=== PATIENT | female | born 1960 | race Caucasian/White ===

== ENCOUNTER 2018-08-22 10:02 | Day surgery (SDC) | payer OTHER ==
[2018-08-20 12:09] VITALS: BMI 85.8
--- NOTE | 2018-08-22 08:11 | P.GSHP ---
History of Present Illness H&P Date: 08/22/18 CHIEF COMPLAINT: GERD HISTORY OF PRESENT ILLNESS: The patient is a 58-year-old female who presents reports gastroesophageal reflux disease. Upper endoscopy was offered for further evaluation and management. PAST MEDICAL HISTORY: Please see list. PAST SURGICAL HISTORY: Please see list. MEDICATIONS: Please see list. ALLERGIES: Please see list. SOCIAL HISTORY: No illicit drug use FAMILY HISTORY: No reports of Crohn disease or ulcerative colitis. REVIEW OF ORGAN SYSTEMS: CONSTITUTIONAL: No reports of fevers or chills. GI: Denies any blood in stools or constipation. PHYSICAL EXAM: VITAL SIGNS: Stable GENERAL: Well-developed and pleasant in no acute distress. HEENT: No scleral icterus. Extraocular movements grossly intact. Moist buccal mucosa. NECK: Supple without lymphadenopathy. CHEST: Unlabored respirations. Equal bilateral excursions. CARDIOVASCULAR: Regular rate and rhythm. Distal 2+ pulses. ABDOMEN: Soft, nondistended. MUSCULOSKELETAL: No clubbing, cyanosis, or edema. ASSESSMENT: 1. Gastroesophageal reflux disease PLAN: 1. Recommend proceeding with an upper endoscopy Past Medical History Past Medical History: Asthma, Diabetes Mellitus, Deep Vein Thrombosis (DVT), GERD/Reflux, Hyperlipidemia, Hypertension, Pulmonary Embolus (PE), Sleep Apnea/ CPAP/BIPAP Additional Past Medical History / Comment(s): dvt bilat legs, DIABETIC NEUROPATHY,GOUT. cpap History of Any Multi-Drug Resistant Organisms: None Reported Past Surgical History: Cholecystectomy, Hysterectomy, Tonsillectomy, Uterine Ablation Additional Past Surgical History / Comment(s): d & c, laparoscopies, Past Anesthesia/Blood Transfusion Reactions: No Reported Reaction, Family History of Problems w/ Anesthesia Additional Past Anesthesia/Blood Transfusion Reaction / Comment(s): mother had hard time waking up from anesthesia Past Psychological History: Anxiety Smoking Status: Never smoker Past Alcohol Use History: None Reported Past Drug Use History: None Reported - Past Family History Father Family Medical History: Cancer, Deep Vein Thrombosis (DVT), Pulmonary Embolus Additional Family Medical History / Comment(s): Factor K-bleeding disorder. cheryl filter Medications and Allergies Home Medications Medication Instructions Recorded Confirmed Type Albuterol Inhaler [Ventolin Hfa 1 - 2 puff INHALATION RT-Q6H PRN 01/10/18 History Inhaler] Allopurinol [Zyloprim] 300 mg PO DAILY 01/10/18 08/20/18 History Aspirin EC [Ecotrin Low Dose] 81 mg PO DAILY 01/10/18 08/20/18 History Beclomethasone Dipropionate [Qvar 2 puff INHALATION DAILY PRN 01/10/18 08/20/18 History 80 mcg] Cetirizine HCl [Zyrtec] 10 mg PO HS 01/10/18 08/20/18 History Cholecalciferol [Vitamin D3] 1,000 unit PO DAILY 01/10/18 08/20/18 History EPINEPHrine (Auto Inject) [Epipen] 0.3 mg IM ONCE PRN 01/10/18 08/20/18 History Fluticasone Nasal [place] [Flonase 2 spr EA NOSTRIL DAILY PRN 01/10/18 08/20/18 History Nasal [place]] Furosemide [Lasix] 40 mg PO DAILY 01/10/18 08/20/18 History Ibuprofen [Motrin] 800 mg PO BID PRN 01/10/18 08/20/18 History Isosorbide Mononitrate [Isosorbide 30 mg PO DAILY 01/10/18 08/20/18 History Mononitrate ER] Lisinopril [Zestril] 2.5 mg PO HS 01/10/18 08/20/18 History Metoprolol Succinate (ER) [Toprol 100 mg PO DAILY 01/10/18 08/20/18 History Xl] Multivitamin,Therapeutic [Thera] 1 each PO DAILY 01/10/18 08/20/18 History Omeprazole 20 mg PO HS 01/10/18 08/20/18 History Potassium Chloride [Klor-Con 20] 20 meq PO DAILY 01/10/18 08/20/18 History Pravastatin Sodium [Pravachol] 40 mg PO HS 01/10/18 08/20/18 History Rivaroxaban [Xarelto] 20 mg PO DAILY 01/10/18 08/20/18 History busPIRone HCL 15 mg PO DAILY 01/10/18 08/20/18 History busPIRone HCL 30 mg PO HS 01/10/18 08/20/18 History Insulin Glargine [Lantus] 100 unit SQ HS 08/20/18 08/20/18 History Insulin Lispro [Admelog] 20 unit SQ TID PRN 08/20/18 08/20/18 History Melatonin 10 mg PO HS 08/20/18 08/20/18 History Allergies Allergy/AdvReac Type Severity Reaction Status Date / Time bee venom protein (honey bee) Allergy Anaphylaxis Verified 08/20/18 11:41 heparin Allergy "makes Verified 08/20/18 11:41 body stop producing blood" warfarin [From Coumadin] Allergy "makes Verified 08/20/18 11:41 body stop producing blood"
[~2018-08-22 10:02] MED LIST: LACTATED RINGERS 1,000 ML IV SCH
[2018-08-22 10:54] LABS: Glucose,Whole Blood 71 mg/dL (75-99)
[2018-08-22] MEDS ORDERED: DEXTROSE 50%-WATER 50 ML SYRINGE IVP ONE (11:05)
[2018-08-22] MEDS ORDERED: DEXTROSE 5%-LACTATED RINGERS 1,000 ML IV STA (11:11)
[2018-08-22 11:35] LABS: Glucose,Whole Blood 81 mg/dL (75-99)
[2018-08-22] MEDS ORDERED: LIDOCAINE 1% INJ 10MG/ML (20 ML MDV) ONE (11:38)
[2018-08-22] MEDS ORDERED: SUCCINYLCHOLINE CHLORIDE VIAL 200 MG/10 ML VIAL IV ONE (11:38)
[2018-08-22] MEDS ORDERED: PROPOFOL 10 MG/ML 20 ML VIAL IV ONE (11:38)
[2018-08-22] MEDS ORDERED: MIDAZOLAM 2 MG/2 ML VIAL ONE (11:38)
--- NOTE | 2018-08-22 12:11 | P.PCN ---
Date of Procedure: 08/22/18 Description of Procedure: PREOPERATIVE DIAGNOSIS: Gastroesophageal reflux disease. Morbid obesity due to excess calories, BMI 85.9 POSTOPERATIVE DIAGNOSIS: Gastroesophageal reflux disease. Morbid obesity due to excess calories, BMI 85.9 Gastritis, acute diffuse with bleeding Gastric polyps OPERATION: Esophagogastroduodenoscopy with biopsies along antrum. SURGEON: Emilie Hermosillo MD ANESTHESIA: GETA. INDICATIONS: The patient is a 58-year-old female who presents with a history of reflux disease. Benefits and risks of the procedure were described. Informed consent was obtained. DESCRIPTION: The patient was brought into t operating room. After general induction, an Olympus gastroscope was passed along the posterior oropharynx down to the distal esophagus where the squamocolumnar junction was encountered at 42 cm from the incisors. The stomach was entered and bile reflux was found. Additional findings are listed below. Biopsies with cold forceps were obtained of the antrum. The first through third portion of the duodenum was examined and unremarkable. Retroflexion of the scope confirmed Hill grade 1 lower esophageal valve. The squamocolumnar junction demonstrated no LA grade A erosive esophagitis. The stomach was desufflated. The patient tolerated the procedure well. FINDINGS: Squamocolumnar junction 42 cm from the incisors. Diaphragmatic hiatus at 42 cm. Hill grade 1 lower esophageal valve. No LA grade A erosive esophagitis. No active duodenitis. Chronic gastritis with recent bleed Patient deemed Mallampati 2 RECOMMENDATIONS: Upper endoscopy as needed. Omeprazole 40 mg daily for acute bleeding gastritis Plan - Discharge Summary Discharge Rx Participant: Yes New Discharge Prescriptions: New Omeprazole 40 mg PO DAILY #30 capsule.dr No Action Albuterol Inhaler [Ventolin Hfa Inhaler] 1 - 2 puff INHALATION RT-Q6H PRN PRN Reason: Shortness Of Breath Allopurinol [Zyloprim] 300 mg PO DAILY Aspirin EC [Ecotrin Low Dose] 81 mg PO DAILY Beclomethasone Dipropionate [Qvar 80 mcg] 2 puff INHALATION DAILY PRN PRN Reason: Dyspnea busPIRone HCL 15 mg PO DAILY busPIRone HCL 30 mg PO HS Cetirizine HCl [Zyrtec] 10 mg PO HS Cholecalciferol [Vitamin D3] 1,000 unit PO DAILY EPINEPHrine (Auto Inject) [Epipen] 0.3 mg IM ONCE PRN PRN Reason: Anaphylaxis Fluticasone Nasal [place] [Flonase Nasal [place]] 2 spr EA NOSTRIL DAILY PRN PRN Reason: Sinus Symptoms Furosemide [Lasix] 40 mg PO DAILY Ibuprofen [Motrin] 800 mg PO BID PRN PRN Reason: Pain Isosorbide Mononitrate [Isosorbide Mononitrate ER] 30 mg PO DAILY Lisinopril [Zestril] 2.5 mg PO HS Metoprolol Succinate (ER) [Toprol Xl] 100 mg PO DAILY Multivitamin,Therapeutic [Thera] 1 each PO DAILY Omeprazole 20 mg PO HS Potassium Chloride [Klor-Con 20] 20 meq PO DAILY Pravastatin Sodium [Pravachol] 40 mg PO HS Rivaroxaban [Xarelto] 20 mg PO DAILY Melatonin 10 mg PO HS Insulin Glargine [Lantus] 100 unit SQ HS Insulin Lispro [Admelog] 20 unit SQ TID PRN PRN Reason: blood sugar over 150 Discharge Medication List Albuterol Inhaler [Ventolin Hfa Inhaler] 1 - 2 puff INHALATION RT-Q6H PRN [History] Allopurinol [Zyloprim] 300 mg PO DAILY 01/10/18 [History] Aspirin EC [Ecotrin Low Dose] 81 mg PO DAILY 01/10/18 [History] Beclomethasone Dipropionate [Qvar 80 mcg] 2 puff INHALATION DAILY PRN 01/10/18 [ History] Cetirizine HCl [Zyrtec] 10 mg PO HS 01/10/18 [History] Cholecalciferol [Vitamin D3] 1,000 unit PO DAILY 01/10/18 [History] EPINEPHrine (Auto Inject) [Epipen] 0.3 mg IM ONCE PRN 01/10/18 [History] Fluticasone Nasal [place] [Flonase Nasal [place]] 2 spr EA NOSTRIL DAILY PRN [History] Furosemide [Lasix] 40 mg PO DAILY 01/10/18 [History] Ibuprofen [Motrin] 800 mg PO BID PRN 01/10/18 [History] Isosorbide Mononitrate [Isosorbide Mononitrate ER] 30 mg PO DAILY 01/10/18 [ History] Lisinopril [Zestril] 2.5 mg PO HS 01/10/18 [History] Metoprolol Succinate (ER) [Toprol Xl] 100 mg PO DAILY 01/10/18 [History] Multivitamin,Therapeutic [Thera] 1 each PO DAILY 01/10/18 [History] Omeprazole 20 mg PO HS 01/10/18 [History] Potassium Chloride [Klor-Con 20] 20 meq PO DAILY 01/10/18 [History] Pravastatin Sodium [Pravachol] 40 mg PO HS 01/10/18 [History] Rivaroxaban [Xarelto] 20 mg PO DAILY 01/10/18 [History] busPIRone HCL 15 mg PO DAILY 01/10/18 [History] busPIRone HCL 30 mg PO HS 01/10/18 [History] Insulin Glargine [Lantus] 100 unit SQ HS 08/20/18 [History] Insulin Lispro [Admelog] 20 unit SQ TID PRN 08/20/18 [History] Melatonin 10 mg PO HS 08/20/18 [History] Omeprazole 40 mg PO DAILY #30 capsule. 08/22/18 [Rx] Follow up Appointment(s)/Referral(s): Emilie Hermosillo MD [STAFF PHYSICIAN] - 08/28/18 Patient Instructions/Handouts: Gastritis (DC) Discharge Disposition: HOME SELF-CARE
[2018-08-22] MEDS ORDERED: LACTATED RINGERS 1,000 ML IV ONE (12:14)
[2018-08-22 12:24] VITALS: TEMP 97.2
[2018-08-22 12:36] LABS: Glucose,Whole Blood 92 mg/dL (75-99)
[2018-08-22 13:12] VITALS: RESP 16
[2018-08-22 13:19] VITALS: BP 114/68; PULSE 71
== END 2018-08-22 14:23 | disposition home or self-care (01) ==
LOC: ORWHC2ENDO 10:02
PROVIDERS: ATTEND Surgery Plastic and Reconstructive Surgery
DX: K29.01 Acute gastritis with bleeding (principal); K29.51 Unspecified chronic gastritis with bleeding; K21.9 Gastro-esophageal reflux disease without esophagitis; J45.909 Unspecified asthma, uncomplicated; K31.7 Polyp of stomach and duodenum; E78.5 Hyperlipidemia, unspecified; I10 Essential (primary) hypertension; E11.42 Type 2 diabetes mellitus with diabetic polyneuropathy; G47.33 Obstructive sleep apnea (adult) (pediatric); M10.9 Gout, unspecified; E66.01 Morbid (severe) obesity due to excess calories; F41.9 Anxiety disorder, unspecified; Z90.49 Acquired absence of other specified parts of digestive tract; Z86.711 Personal history of pulmonary embolism; Z86.718 Personal history of other venous thrombosis and embolism; Z90.710 Acquired absence of both cervix and uterus; Z79.899 Other long term (current) drug therapy; Z99.89 Dependence on other enabling machines and devices; Z79.82 Long term (current) use of aspirin; Z79.4 Long term (current) use of insulin; Z88.8 Allergy status to other drugs, medicaments and biological substances; Z91.030 Bee allergy status; Z68.45 Body mass index [BMI] 70 or greater, adult; Z79.01 Long term (current) use of anticoagulants
CPT/HCPCS: 88305; 43239; J2250; J0330; J2001; J2704

== ENCOUNTER → 2020-03-04 | Day surgery (SDC) | payer OTHER ==
[2020-02-28 14:56] VITALS: BMI 71.8
[~2020-03-04] MED LIST changes: +GLYCOPYRROLATE 0.2 MG/ML 2 ML VIAL ONE; +KETAMINE 10 MG/ML 20 ML VIAL ONE; +LIDOCAINE 1% INJ 10MG/ML (20 ML MDV) ONE; +MIDAZOLAM 2 MG/2 ML VIAL ONE; +PROPOFOL 10 MG/ML 20 ML VIAL IV ONE
--- NOTE | 2020-03-04 04:30 | P.GSHP ---
History of Present Illness H&P Date: 03/04/20 CHIEF COMPLAINT: GERD HISTORY OF PRESENT ILLNESS: The patient is a 59-year-old female who presents reports gastroesophageal reflux disease. Upper endoscopy was offered for further evaluation and management. PAST MEDICAL HISTORY: Please see list. PAST SURGICAL HISTORY: Please see list. MEDICATIONS: Please see list. ALLERGIES: Please see list. SOCIAL HISTORY: No illicit drug use FAMILY HISTORY: No reports of Crohn disease or ulcerative colitis. REVIEW OF ORGAN SYSTEMS: CONSTITUTIONAL: No reports of fevers or chills. GI: Denies any blood in stools or constipation. PHYSICAL EXAM: VITAL SIGNS: Stable GENERAL: Well-developed and pleasant in no acute distress. HEENT: No scleral icterus. Extraocular movements grossly intact. Moist buccal mucosa. NECK: Supple without lymphadenopathy. CHEST: Unlabored respirations. Equal bilateral excursions. CARDIOVASCULAR: Regular rate and rhythm. Distal 2+ pulses. ABDOMEN: Soft, nondistended. MUSCULOSKELETAL: No clubbing, cyanosis. ASSESSMENT: 1. Gastroesophageal reflux disease PLAN: 1. Recommend proceeding with an upper endoscopy Past Medical History Past Medical History: Asthma, Diabetes Mellitus, Deep Vein Thrombosis (DVT), GERD/Reflux, Hyperlipidemia, Hypertension, Pulmonary Embolus (PE), Sleep Apnea/CPAP/BIPAP Additional Past Medical History / Comment(s): dvt bilat legs, DIABETIC NEUROPATHY,GOUT,uses cpap,lymphadema History of Any Multi-Drug Resistant Organisms: None Reported Past Surgical History: Cholecystectomy, Hysterectomy, Tonsillectomy, Uterine Ablation Additional Past Surgical History / Comment(s): d & c, laparoscopies, Past Anesthesia/Blood Transfusion Reactions: No Reported Reaction, Family History of Problems w/ Anesthesia Additional Past Anesthesia/Blood Transfusion Reaction / Comment(s): mother had hard time waking up from anesthesia Past Psychological History: Anxiety Smoking Status: Never smoker Past Alcohol Use History: None Reported Past Drug Use History: None Reported - Past Family History Father Family Medical History: Cancer, Deep Vein Thrombosis (DVT), Pulmonary Embolus Additional Family Medical History / Comment(s): Factor K-bleeding disorder. cheryl filter Medications and Allergies Home Medications Medication Instructions Recorded Confirmed Type Albuterol Inhaler (Mhu) [Ventolin 1 - 2 puff INHALATION RT-Q6H PRN 01/10/18 02/28/20 History Hfa Inhaler] Aspirin EC [Ecotrin Low Dose] 81 mg PO DAILY 01/10/18 02/28/20 History Beclomethasone Dipropionate [Qvar 2 puff INHALATION DAILY PRN 01/10/18 02/28/20 History 80 mcg] Cetirizine HCl [Zyrtec] 10 mg PO HS 01/10/18 02/28/20 History Cholecalciferol [Vitamin D3] 1,000 unit PO DAILY 01/10/18 02/28/20 History EPINEPHrine (Auto Inject) [Epipen] 0.3 mg IM ONCE PRN 01/10/18 02/28/20 History Fluticasone Nasal [place] [Flonase 2 spr EA NOSTRIL DAILY PRN 01/10/18 02/28/20 History Nasal [place]] Furosemide [Lasix] 40 mg PO DAILY 01/10/18 02/28/20 History Isosorbide Mononitrate [Isosorbide 30 mg PO QA 01/10/18 02/28/20 History Mononitrate ER] Metoprolol Succinate (ER) [Toprol 100 mg PO QA 01/10/18 02/28/20 History Xl] Multivitamin,Therapeutic [Thera] 1 each PO DAILY 01/10/18 02/28/20 History Omeprazole 20 mg PO HS 01/10/18 02/28/20 History Potassium Chloride [Klor-Con 20] 20 meq PO DAILY 01/10/18 02/28/20 History Pravastatin Sodium [Pravachol] 40 mg PO HS 01/10/18 02/28/20 History Rivaroxaban [Xarelto] 20 mg PO DAILY 01/10/18 02/28/20 History allopurinoL [Zyloprim] 300 mg PO DAILY 01/10/18 02/28/20 History busPIRone HCL 15 mg PO DAILY 01/10/18 02/28/20 History busPIRone HCL 30 mg PO HS 01/10/18 02/28/20 History lisinopriL [Zestril] 2.5 mg PO HS 01/10/18 02/28/20 History Insulin Lispro [Admelog] 20 unit SQ TID PRN 08/20/18 02/28/20 History Melatonin 10 mg PO HS 08/20/18 02/28/20 History Omeprazole 40 mg PO DAILY #30 capsule. 08/22/18 02/28/20 Rx Insulin Glargine,Hum.rec.anlog 60 unit SQ HS 03/03/20 03/03/20 History [Basaglsoumya Evans U-100] Allergies Allergy/AdvReac Type Severity Reaction Status Date / Time bee venom protein (honey bee) Allergy Anaphylaxis Verified 02/28/20 14:47 heparin Allergy "makes Verified 02/28/20 14:47 body stop producing blood" hydrocodone Allergy "norco Verified 02/28/20 14:47 doesn't work" warfarin [From Coumadin] Allergy "makes Verified 02/28/20 14:47 body stop producing blood"
[2020-03-04 07:13] VITALS: TEMP 97.9
[2020-03-04 07:15] LABS: Glucose,Whole Blood 268 mg/dL (75-99)
[2020-03-04 08:18] VITALS: RESP 16
--- NOTE | 2020-03-04 08:18 | P.PCN ---
Date of Procedure: 03/04/20 Description of Procedure: PREOPERATIVE DIAGNOSIS: Gastroesophageal reflux disease History of gastritis and gastric ulcer Morbid obesity due to excess calories, BMI > 80 POSTOPERATIVE DIAGNOSIS: Gastroesophageal reflux disease History of gastritis and gastric ulcer Morbid obesity due to excess calories, BMI > 80 OPERATION: Esophagogastroduodenoscopy with biopsies along antrum. SURGEON: Emilie Hermosillo MD ANESTHESIA: MAC. INDICATIONS: The patient is a 59-year-old female who presents with a history of reflux disease including gastritis. Benefits and risks of the procedure were described. Informed consent was obtained. DESCRIPTION: The patient was brought into the endoscopy suite and laid in the left lateral decubitus position. An Olympus gastroscope was passed along the posterior oropharynx down to the distal esophagus where the squamocolumnar junction was encountered at 40 cm from the incisors. The stomach was entered and no bile reflux was found. Additional findings are listed below. Biopsies with cold forceps were obtained of the antrum. The first through third portion of the duod enum was examined and unremarkable. Retroflexion of the scope confirmed Hill grade 2 lower esophageal valve. The squamocolumnar junction demonstrated no LA grade A erosive esophagitis. The stomach was desufflated. The patient tolerated the procedure well. FINDINGS: Squamocolumnar junction 40 cm from the incisors. Diaphragmatic hiatus at 40 cm. Hill grade 2 lower esophageal valve. No LA grade A erosive esophagitis. No active duodenitis. Resolved severe gastritis and gastric ulcers RECOMMENDATIONS: Upper endoscopy as needed. Plan - Discharge Summary Discharge Rx Participant: No New Discharge Prescriptions: Continue Albuterol Inhaler (Mhu) [Ventolin Hfa Inhaler (Mhu)] 1 - 2 puff INHALATION RT-Q6H PRN PRN Reason: Shortness Of Breath allopurinoL [Zyloprim] 300 mg PO DAILY Aspirin EC [Ecotrin Low Dose] 81 mg PO DAILY Beclomethasone Dipropionate [Qvar 80 mcg] 2 puff INHALATION DAILY PRN PRN Reason: Dyspnea busPIRone HCL 15 mg PO DAILY busPIRone HCL 30 mg PO HS Cetirizine HCl [Zyrtec] 10 mg PO HS Cholecalciferol [Vitamin D3 (25 Mcg = 1000 Iu)] 1,000 unit PO DAILY EPINEPHrine (Auto Inject) [Epipen] 0.3 mg IM ONCE PRN PRN Reason: Anaphylaxis Fluticasone Nasal [place] [Flonase Nasal [place]] 2 spr EA NOSTRIL DAILY PRN PRN Reason: Sinus Symptoms Furosemide [Lasix] 40 mg PO DAILY Isosorbide Mononitrate [Isosorbide Mononitrate ER] 30 mg PO QAM lisinopriL [Zestril] 2.5 mg PO HS Metoprolol Succinate (ER) [Toprol XL] 100 mg PO QAM Multivitamin,Therapeutic [Thera] 1 each PO DAILY Potassium Chloride [Klor-Con 20] 20 meq PO DAILY Pravastatin Sodium [Pravachol] 40 mg PO HS Rivaroxaban [Xarelto] 20 mg PO DAILY Melatonin 10 mg PO HS Insulin Lispro [Admelog] 20 unit SQ TID PRN PRN Reason: blood sugar over 150 Omeprazole 40 mg PO DAILY #30 capsule. Insulin Glargingiovanni,Hum.rec.anlog [Basaglar Kwikpen U-100] 60 unit SQ HS Discontinued Omeprazole 20 mg PO HS Discharge Medication List Albuterol Inhaler (Mhu) [Ventolin Hfa Inhaler (Mhu)] 1 - 2 puff INHALATION RT- Q6H PRN 01/10/18 [History] Aspirin EC [Ecotrin Low Dose] 81 mg PO DAILY 01/10/18 [History] Beclomethasone Dipropionate [Qvar 80 mcg] 2 puff INHALATION DAILY PRN 01/10/18 [History] Cetirizine HCl [Zyrtec] 10 mg PO HS 01/10/18 [History] Cholecalciferol [Vitamin D3 (25 Mcg = 1000 Iu)] 1,000 unit PO DAILY 01/10/18 [History] EPINEPHrine (Auto Inject) [Epipen] 0.3 mg IM ONCE PRN 01/10/18 [History] Fluticasone Nasal [place] [Flonase Nasal [place]] 2 spr EA NOSTRIL DAILY PRN 01/10/18 [History] Furosemide [Lasix] 40 mg PO DAILY 01/10/18 [History] Isosorbide Mononitrate [Isosorbide Mononitrate ER] 30 mg PO QAM 01/10/18 [History] Metoprolol Succinate (ER) [Toprol XL] 100 mg PO QAM 01/10/18 [History] Multivitamin,Therapeutic [Thera] 1 each PO DAILY 01/10/18 [History] Potassium Chloride [Klor-Con 20] 20 meq PO DAILY 01/10/18 [History] Pravastatin Sodium [Pravachol] 40 mg PO HS 01/10/18 [History] Rivaroxaban [Xarelto] 20 mg PO DAILY 01/10/18 [History] allopurinoL [Zyloprim] 300 mg PO DAILY 01/10/18 [History] busPIRone HCL 15 mg PO DAILY 01/10/18 [History] busPIRone HCL 30 mg PO HS 01/10/18 [History] lisinopriL [Zestril] 2.5 mg PO HS 01/10/18 [History] Insulin Lispro [Admelog] 20 unit SQ TID PRN 08/20/18 [History] Melatonin 10 mg PO HS 08/20/18 [History] Omeprazole 40 mg PO DAILY #30 capsule. 08/22/18 [Rx] Insulin Glargine,Hum.rec.anlog [[place] U-100] 60 unit SQ HS 03/03/20 [History] Follow [facility]ment(s[facility] [facility] [place] [facility] - [facility] Patient Instructions/Handouts: Gastroesophageal Reflux Disease (DC) Discharge Disposition: HOME SELF-CARE
[2020-03-04 08:20] LABS: Glucose,Whole Blood 261 mg/dL (75-99)
--- NOTE | 2020-03-04 08:44 | P.PN ---
Progress Note - Text Progress Note Date: 03/04/20 Patient presents for super morbid obesity, pre-existing BMI over 80. Patient requires EMS transport for transportation. EGD completed with resolution of gastritis. Patient is a bariatric candidate from [facility] transferring care to [facility]. She has ischemic cardiomyopathy, COPD. We'll obtain EKG including chest x-ray. Also, bariatric labs being obtained for nutritional deficiencies. Consent for transfer records being obtained by bariatric center
[2020-03-04 09:02] VITALS: BP 149/74; PULSE 69
--- NOTE | 2020-03-04 09:10 | XR ---
EXAMINATION TYPE: XR chest 1V DATE OF EXAM: 03/04/2020 HISTORY: Shortness of breath. COMPARISON: None. TECHNIQUE: Single view of the chest is submitted. FINDINGS: Demonstrated are scattered senescent parenchymal change. There is no evidence for focal infiltrate. The heart is stable. Hilar and mediastinal structures are within normal limits. Degenerative changes are seen of the dorsal spine. IMPRESSION: 1. Chronic changes without evidence for acute pulmonary disease.
[2020-03-04 10:05] LABS: Basophils # (A) 0.1 k/uL (0-0.2); Basophils % (A) 1 %; Eosinophils # (A) 0.3 k/uL (0-0.7); Eosinophils % (A) 4 %; HCT 41.7 % (34.0-46.0); HGB 13.3 gm/dL (11.4-16.0); Lymphocytes % (A) 28 %; MCH 30.7 pg (25.0-35.0); Mean Platelet Volume 7.7; Monocytes # (A) 0.4 k/uL (0-1.0); Monocytes % (A) 6 %; Neutrophils # (A) 4.2 k/uL (1.3-7.7); Neutrophils % (A) 59 %; Platelet Count 181 k/uL (150-450); RBC 4.34 m/uL (3.80-5.40); RDW 14.4 % (11.5-15.5); WBC 7.2 k/uL (3.8-10.6)
[2020-03-04 10:10] LABS: ALT 19 U/L (4-34); AST 20 U/L (14-36); African American GFR (CKD) >90 (>60 ml/min/1.73 sqM); Albumin 3.4 g/dL (3.5-5.0); Alkaline Phosphatase 93 U/L (38-126); Anion Gap 4 mmol/L; Blood Urea Nitrogen 17 mg/dL (7-17); Calcium 8.8 mg/dL (8.4-10.2); Carbon Dioxide 30 mmol/L (22-30); Chloride 103 mmol/L (98-107); Cholesterol 160 mg/dL (<200); Glucose 230 mg/dL (74-99); HDL Cholesterol 45 mg/dL (40-60); LDL Cholesterol,Calculated 91 mg/dL (0-99); Magnesium 2.1 mg/dL (1.6-2.3); Non-African American GFR(CKD) 81 (>60 ml/min/1.73 sqM); Potassium 4.4 mmol/L (3.5-5.1); Sodium 137 mmol/L (137-145); Total Bilirubin 0.5 mg/dL (0.2-1.3); Triglycerides 121 mg/dL (<150)
[2020-03-04 17:16] LABS: % Iron Saturation 17.57 (12.00-45.00); Iron 55 ug/dL (50-170); Total Iron Binding Capacity 313 ug/dL (228-460)
[2020-03-04 17:24] LABS: Ferritin 20.3 ng/mL (10.0-291.0)
[2020-03-04 17:31] LABS: Folate, Serum 21.8 ng/mL
[2020-03-05 11:40] LABS: Zinc, Serum 69 ug/dL (60-130)
[2020-03-05 12:17] LABS: Vitamin D, 1, 25-Dihydroxy 44 pg/mL (20 - 79)
[2020-03-05 13:17] LABS: Vitamin A 33 ug/dL (38-106)
[2020-03-06 23:58] LABS: Selenium 100 mcg/L (63-160)
== END | disposition home or self-care (01) ==
LOC: ORWHC2ENDO 06:41
PROVIDERS: ATTEND Surgery Plastic and Reconstructive Surgery
DX: K25.9 Gastric ulcer, unspecified as acute or chronic, without hemorrhage or perforation (principal); K29.50 Unspecified chronic gastritis without bleeding; K21.9 Gastro-esophageal reflux disease without esophagitis; E66.01 Morbid (severe) obesity due to excess calories; Z68.45 Body mass index [BMI] 70 or greater, adult; E11.40 Type 2 diabetes mellitus with diabetic neuropathy, unspecified; I25.5 Ischemic cardiomyopathy; J45.909 Unspecified asthma, uncomplicated; Z86.718 Personal history of other venous thrombosis and embolism; E78.5 Hyperlipidemia, unspecified; I10 Essential (primary) hypertension; Z86.711 Personal history of pulmonary embolism; G47.33 Obstructive sleep apnea (adult) (pediatric); Z99.89 Dependence on other enabling machines and devices; M10.9 Gout, unspecified; F41.9 Anxiety disorder, unspecified; I89.0 Lymphedema, not elsewhere classified; Z90.49 Acquired absence of other specified parts of digestive tract; Z90.710 Acquired absence of both cervix and uterus; Z98.890 Other specified postprocedural states; Z84.89 Family history of other specified conditions; Z82.49 Family history of ischemic heart disease and other diseases of the circulatory system; Z83.2 Family history of diseases of the blood and blood-forming organs and certain disorders involving the immune mechanism; Z95.828 Presence of other vascular implants and grafts; Z79.01 Long term (current) use of anticoagulants; Z79.82 Long term (current) use of aspirin; Z79.4 Long term (current) use of insulin; Z79.899 Other long term (current) drug therapy; Z88.5 Allergy status to narcotic agent; Z88.8 Allergy status to other drugs, medicaments and biological substances; Z91.030 Bee allergy status
CPT/HCPCS: 84255; 82652; 88305; 80061; 80053; 82607; 82728; 82525; 82746; 83540; 83550; 83735; 84443; 84590; 84630; 85025; 85610; 83970; 71045; 43239; J2250; J2001; J2704

== ENCOUNTER 2020-03-21 12:10 | Inpatient (IN) | payer OTHER ==
--- NOTE | 2020-03-21 12:55 | ED ---
General Adult HPI - General Chief complaint: Skin/Abscess/Foreign Body Stated complaint: Celulitis Time Seen by Provider: 03/21/20 12:14 Source: patient, RN notes reviewed Mode of arrival: wheelchair Limitations: no limitations - History of Present Illness Initial comments: Patient is a pleasant 60-year-old female presenting to the emergency department with concerns for cellulitis. Patient was at the clinic with Dr. Del Angel who did evaluate her and recommend she come to the emergency department. Patient has been on oral antibiotics without improvement of symptoms. Patient does have history of similar symptoms previously requiring hospitalization and infectious disease consult with a cocktail of antibiotics. Patient does have some discomfort in the area. Area involved is left greater than right posterior leg. Patient did also have a fall out of the ambulance upon arrival to the hospital. Patient states she just bruised her left elbow and scratch her right elbow. No head injury or loss of consciousness. - Related Data Home Medications Medication Instructions Recorded Confirmed Albuterol Inhaler (Mhu) [Ventolin 1 - 2 puff INHALATION RT-Q6H PRN 01/10/18 02/28/20 Hfa Inhaler (Mhu)] Aspirin EC [Ecotrin Low Dose] 81 mg PO DAILY 01/10/18 02/28/20 Beclomethasone Dipropionate [Qvar 2 puff INHALATION DAILY PRN 01/10/18 02/28/20 80 mcg] Cetirizine HCl [Zyrtec] 10 mg PO HS 01/10/18 02/28/20 Cholecalciferol [Vitamin D3 (25 1,000 unit PO DAILY 01/10/18 02/28/20 Mcg = 1000 Iu)] EPINEPHrine (Auto Inject) [Epipen] 0.3 mg IM ONCE PRN 01/10/18 02/28/20 Fluticasone Nasal [place] [Flonase 2 spr EA NOSTRIL DAILY PRN 01/10/18 02/28/20 Nasal [place]] Furosemide [Lasix] 40 mg PO DAILY 01/10/18 02/28/20 Isosorbide Mononitrate [Isosorbide 30 mg PO QAM 01/10/18 02/28/20 Mononitrate ER] Metoprolol Succinate (ER) [Toprol 100 mg PO QAM 01/10/18 02/28/20 XL] Multivitamin,Therapeutic [Thera] 1 each PO DAILY 01/10/18 02/28/20 Potassium Chloride [Klor-Con 20] 20 meq PO DAILY 01/10/18 02/28/20 Pravastatin Sodium [Pravachol] 40 mg PO HS 01/10/18 02/28/20 Rivaroxaban [Xarelto] 20 mg PO DAILY 01/10/18 02/28/20 allopurinoL [Zyloprim] 300 mg PO DAILY 01/10/18 02/28/20 busPIRone HCL 15 mg PO DAILY 01/10/18 02/28/20 busPIRone HCL 30 mg PO HS 01/10/18 02/28/20 lisinopriL [Zestril] 2.5 mg PO HS 01/10/18 02/28/20 Insulin Lispro [Admelog] 20 unit SQ TID PRN 08/20/18 02/28/20 Melatonin 10 mg PO HS 08/20/18 02/28/20 Insulin Glargine,Hum.rec.anlog 60 unit SQ HS 03/03/20 03/03/20 [Basaglar Kwikpen U-100] Previous Rx's Medication Instructions Recorded Omeprazole 40 mg PO DAILY #30 capsule. 08/22/18 Allergies Allergy/AdvReac Type Severity Reaction Status Date / Time bee venom protein (honey bee) Allergy Anaphylaxis Verified 03/21/20 12:17 heparin Allergy "makes Verified 03/21/20 12:17 body stop producing blood" hydrocodone Allergy "norco Verified 03/21/20 12:17 doesn't work" warfarin [From Coumadin] Allergy "makes Verified 03/21/20 12:17 body stop producing blood" Review of Systems ROS Statement: Those systems with pertinent positive or pertinent negative responses have been documented in the HPI. ROS Other: All systems not noted in ROS Statement are negative. Constitutional: Denies: fever Eyes: Denies: eye pain ENT: Denies: ear pain Respiratory: Denies: cough Cardiovascular: Denies: chest pain Endocrine: Denies: fatigue Gastrointestinal: Denies: abdominal pain Genitourinary: Denies: dysuria Musculoskeletal: Denies: back pain Skin: Reports: rash Neurological: Denies: weakness Past Medical History Past Medical History: Asthma, Diabetes Mellitus, Deep Vein Thrombosis (DVT), GERD/Reflux, Hyperlipidemia, Hypertension, Pulmonary Embolus (PE), Sleep Apnea/CPAP/BIPAP Additional Past Medical History / Comment(s): dvt bilat legs, DIABETIC NEUROPATHY,GOUT,uses cpap,lymphadema History of Any Multi-Drug Resistant Organisms: None Reported Past Surgical History: Cholecystectomy, Hysterectomy, Tonsillectomy, Uterine Ablation Additional Past Surgical History / Comment(s): d & c, laparoscopies, Past Anesthesia/Blood Transfusion Reactions: No Reported Reaction, Family History of Problems w/ Anesthesia Additional Past Anesthesia/Blood Transfusion Reaction / Comment(s): mother had hard time waking up from anesthesia Past Psychological History: Anxiety Smoking Status: Never smoker Past Alcohol Use History: None Reported Past Drug Use History: None Reported - Past Family History Father Family Medical History: Cancer, Deep Vein Thrombosis (DVT), Pulmonary Embolus Additional Family Medical History / Comment(s): Factor K-bleeding disorder. cheryl filter General Exam Limitations: no limitations General appearance: alert, in no apparent distress, obese Head exam: Present: normocephalic Eye exam: Present: normal appearance Neck exam: Present: normal inspection Respiratory exam: Present: normal lung sounds bilaterally Cardiovascular Exam: Present: regular rate, normal rhythm GI/Abdominal exam: Present: soft. Absent: tenderness Extremities exam: Present: other (Leg edema bilateral) Neurological exam: Present: alert Psychiatric exam: Present: normal affect, normal mood Skin exam: Present: erythema (Left posterior leg with large area of cellulitis involving pannus of the legs. Mild involvement of the right.) Course Vital Signs 03/21/20 12:14 Temperature 97.0 F L Pulse Rate 67 Respiratory 16 Rate Blood Pressure 140/75 O2 Sat by Pulse 98 Oximetry Medical Decision Making - Medical Decision Making Patient updated on plan. Case was discussed with Dr. Ramires, who will admit covering for hospital call. Disposition Clinical Impression: Cellulitis of left leg Disposition: ADMITTED IP TO THIS HOSP Is patient prescribed a controlled substance at d/c from ED?: No Referrals: Celia Ramos MD [Primary Care Provider] - 1-2 days Decision Time: 13:17
[2020-03-21] MEDS ORDERED: AMPICILLIN-SULBACTAM 3 GM in SODIUM CHLORIDE 0.9% 100 ML IVPB STA (13:17)
[2020-03-21] MEDS ORDERED: VANCOMYCIN IV PER PHARMACY 1 EACH MISC MISCELLANE PRN (13:17)
[2020-03-21] MEDS ORDERED: NALOXONE 0.4 MG/ML 1 ML VIAL IV PRN (13:17)
[2020-03-21 13:52] LABS: Basophils # (A) 0.1 k/uL (0-0.2); Basophils % (A) 1 %; Eosinophils # (A) 0.2 k/uL (0-0.7); Eosinophils % (A) 1 %; HGB 14.9 gm/dL (11.4-16.0); Lymphocytes # (A) 2.1 k/uL (1.0-4.8); Lymphocytes % (A) 16 %; MCH 30.8 pg (25.0-35.0); MCHC 32.3 g/dL (31.0-37.0); MCV 95.4 fL (80.0-100.0); Mean Platelet Volume 7.7; Monocytes # (A) 0.7 k/uL (0-1.0); Monocytes % (A) 5 %; Neutrophils # (A) 9.9 k/uL (1.3-7.7); Neutrophils % (A) 76 %; Platelet Count 227 k/uL (150-450); RBC 4.83 m/uL (3.80-5.40); RDW 14.2 % (11.5-15.5)
[2020-03-21] MEDS ORDERED: MORPHINE SULFATE 4 MG/ML SYRINGE IV STA (13:56)
[2020-03-21] MEDS ORDERED: VANCOMYCIN 2,500 MG in SODIUM CHLORIDE 0.9% 500 ML 500 ML IVPB ONE (14:00)
[2020-03-21 14:04] LABS: Albumin 4.2 g/dL (3.5-5.0); Calcium 9.5 mg/dL (8.4-10.2); Potassium 4.6 mmol/L (3.5-5.1); Total Bilirubin 0.5 mg/dL (0.2-1.3); Total Protein 7.3 g/dL (6.3-8.2)
[2020-03-21 18:12] LABS: Glucose,Whole Blood 210 mg/dL (75-99)
[2020-03-21] MEDS ORDERED: INSULIN LISPRO (For Pump) 100 UNIT/ML VIAL SQ-PUMP PRN (18:14)
--- NOTE | 2020-03-21 18:18 | P.HPIM ---
History of Present Illness H&P Date: 03/21/20 Chief Complaint: Pain and swelling lower extremity 60-year-old female presenting to the emergency department with concerns for cellulitis. Patient was at the clinic with Dr. Del Angel who did evaluate her and recommend she come to the emergency department. Patient has been on oral antibiotics without improvement of symptoms. Patient does have history of similar symptoms previously requiring hospitalization and infectious disease consult with a cocktail of antibiotics. Patient does have some discomfort in the area. Area involved is left greater than right posterior leg. Patient did also have a fall out of the ambulance upon arrival to the hospital. Patient states she just bruised her left elbow and scratch her right elbow. No head injury or loss of consciousness. Review of Systems REVIEW OF SYSTEMS: CONSTITUTIONAL: No fever, no malaise, no fatigue. HEENT: No recent visual problems or hearing problems. Denied any sore throat. CARDIOVASCULAR: No chest pain, orthopnea, PND, no palpitations, no syncope. PULMONARY: No shortness of breath, no cough, no hemoptysis. GASTROINTESTINAL: No diarrhea, no nausea, no vomiting, no abdominal pain. NEUROLOGICAL: No headaches, no weakness, no numbness. HEMATOLOGICAL: Denies any bleeding or petechiae. GENITOURINARY: Denies any burning micturition, frequency, or urgency. MUSCULOSKELETAL/RHEUMATOLOGICAL: Denies any joint pain, swelling, or any muscle pain. ENDOCRINE: Denies any polyuria or polydipsia. The rest of the 14-point review of systems is negative. Past Medical History Past Medical History: Asthma, Diabetes Mellitus, Deep Vein Thrombosis (DVT), GERD/Reflux, Hyperlipidemia, Hypertension, Pulmonary Embolus (PE), Sleep Apnea/CPAP/BIPAP Additional Past Medical History / Comment(s): dvt bilat legs, DIABETIC NEUROPATHY,GOUT,uses cpap,lymphadema History of Any Multi-Drug Resistant Organisms: None Reported Past Surgical History: Cholecystectomy, Hysterectomy, Tonsillectomy, Uterine Ablation Additional Past Surgical History / Comment(s): d & c, laparoscopies, Past Anesthesia/Blood Transfusion Reactions: No Reported Reaction, Family History of Problems w/ Anesthesia Additional Past Anesthesia/Blood Transfusion Reaction / Comment(s): mother had hard time waking up from anesthesia Past Psychological History: Anxiety Smoking Status: Never smoker Past Alcohol Use History: None Reported Past Drug Use History: None Reported - Past Family History Father Family Medical History: Cancer, Deep Vein Thrombosis (DVT), Pulmonary Embolus Additional Family Medical History / Comment(s): Factor K-bleeding disorder. cheryl filter Medications and Allergies Home Medications Medication Instructions Recorded Confirmed Type Aspirin EC [Ecotrin Low Dose] 81 mg PO DAILY 01/10/18 03/21/20 History Cetirizine HCl [Zyrtec] 10 mg PO HS 01/10/18 03/21/20 History Cholecalciferol [Vitamin D3 (25 1,000 unit PO DAILY 01/10/18 03/21/20 History Mcg = 1000 Iu)] EPINEPHrine (Auto Inject) [Epipen] 0.3 mg IM ONCE PRN 01/10/18 03/21/20 History Fluticasone Nasal [place] [Flonase 1 spr EA NOSTRIL BID 01/10/18 03/21/20 History Nasal [place]] Furosemide [Lasix] 40 mg PO DAILY 01/10/18 03/21/20 History Isosorbide Mononitrate [Isosorbide 30 mg PO QAM 01/10/18 03/21/20 History Mononitrate ER] Metoprolol Succinate (ER) [Toprol 100 mg PO QAM 01/10/18 03/21/20 History XL] Multivitamin,Therapeutic [Thera] 1 each PO DAILY 01/10/18 03/21/20 History Potassium Chloride [Klor-Con 20] 20 meq PO DAILY 01/10/18 03/21/20 History Pravastatin Sodium [Pravachol] 40 mg PO HS 01/10/18 03/21/20 History Rivaroxaban [Xarelto] 20 mg PO DAILY 01/10/18 03/21/20 History allopurinoL [Zyloprim] 300 mg PO DAILY 01/10/18 03/21/20 History busPIRone HCL 15 mg PO DAILY 01/10/18 03/21/20 History lisinopriL [Zestril] 2.5 mg PO HS 01/10/18 03/21/20 History Insulin Lispro [Admelog] 20 unit SQ TID PRN 08/20/18 03/21/20 History Melatonin 10 mg PO HS 08/20/18 03/21/20 History Omeprazole 40 mg PO DAILY #30 capsule. 08/22/18 03/21/20 Rx Insulin Glargine,Hum.rec.anlog 60 unit SQ HS 03/03/20 03/21/20 History [[place] U-100] Doxycycline Hyclate 100 mg PO BID 03/21/20 03/21/20 History Allergies Allergy/AdvReac Type Severity Reaction Status Date / Time bee venom protein (honey bee) Allergy Anaphylaxis Verified 03/21/20 15:05 heparin Allergy "makes Verified 03/21/20 15:05 body stop producing blood" hydrocodone Allergy "norco Verified 03/21/20 15:05 doesn't work" warfarin [From Coumadin] Allergy "makes Verified 03/21/20 15:05 body stop producing blood" Physical Exam Vitals: Vital Signs Temp Pulse Resp BP Pulse Ox 03/21/20 14:20 97.6 F 69 18 132/80 98 03/21/20 12:14 97.0 F L 67 16 140/75 98 Intake and Output 03/21/20 03/21/20 03/21/20 06:59 14:59 22:59 Other: Weight 199.581 kg PHYSICAL EXAMINATION: GENERAL: The patient is alert and oriented x3, not in any acute distress. Well developed, well nourished. HEENT: Pupils are round and equally reacting to light. EOMI. No scleral icterus. No conjunctival pallor. Normocephalic, atraumatic. No pharyngeal erythema. No th yromegaly. CARDIOVASCULAR: S1 and S2 present. No murmurs, rubs, or gallops. PULMONARY: Chest is clear to auscultation, no wheezing or crackles. ABDOMEN: Soft, nontender, nondistended, normoactive bowel sounds. No palpable organomegaly. MUSCULOSKELETAL: No joint swelling or deformity. EXTREMITIES: No cyanosis, clubbing, or pedal edema. NEUROLOGICAL: Gross neurological examination did not reveal any focal deficits. Skin exam: Present: erythema (Left posterior leg with large area of cellulitis involving pannus of the legs. Mild involvement of the right. Results CBC & Chem 7: 03/21/20 13:16 03/21/20 13:16 Labs: Abnormal Lab Results - Last 24 Hours (Table) 03/21/20 03/21/20 Range/Units 13:16 13:16 WBC 13.0 H (3.8-10.6) k/uL Neutrophils # 9.9 H (1.3-7.7) k/uL BUN 21 H (7-17) mg/dL Glucose 222 H (74-99) mg/dL Assessment and Plan Assessment: 1. Cellulitis bilateral lower extremities; left worse than right; patient started on IV Unasyn; blood cultures are done 2. Lymphedema bilateral lower extremities; symptomatic treatment 3. Diabetes mellitus type 1; continue Levemir 60 units subcu daily at bedtime; patient takes 20 units subcu before meals each meal; we will continue to monitor blood sugars and cover with sliding scale 4. Hypertension; lisinopril 2.5 mg by mouth daily at bedtime along with metopro lol 100 mg daily 5. Hyperlipidemia; Pravachol 40 mg by mouth daily at bedtime 6. DVT; by history; continue anticoagulation with Xarelto
[2020-03-21] MEDS: INSULIN ASPART (NovoLOG) 100 UNIT/ML VIAL SQ PRN (20:04)
[2020-03-21 20:51] LABS: Glucose,Whole Blood 265 mg/dL (75-99)
[2020-03-21] MEDS: FLUTICASONE 50MCG/SPRAY NASAL 16GM EA NOSTRIL SCH (21:33)
[2020-03-21] MEDS: INSULIN DETEMIR (LEVEMIR) 100 UNIT/ML SYR SQ SCH (21:33)
[2020-03-21] MEDS: LORATADINE 10 MG TAB PO SCH (21:33)
[2020-03-21] MEDS: MELATONIN 5 MG TABLET PO SCH (21:33)
[2020-03-21] MEDS: PRAVASTATIN SODIUM 40 MG TAB PO SCH (21:41)
[2020-03-21] MEDS: AMPICILLIN-SULBACTAM 3 GM in SODIUM CHLORIDE 0.9% 100 ML IVPB SCH (21:43)
--- NOTE | 2020-03-21 21:55 | XR ---
EXAMINATION TYPE: XR elbow complete LT DATE OF EXAM: 03/21/2020 CLINICAL HISTORY: Fall injury today with pain. TECHNIQUE: Frontal, lateral and oblique images of the left elbow are obtained. COMPARISON: None FINDINGS: There is no acute fracture/dislocation evident in the left elbow. No abnormal fat pad sig ns are seen. The overlying soft tissue appears unremarkable. IMPRESSION: There is no acute fracture or dislocation in the left elbow.
--- NOTE | 2020-03-21 21:56 | XR ---
EXAMINATION TYPE: XR wrist complete LT DATE OF EXAM: 03/21/2020 CLINICAL HISTORY: Left wrist pain after fall injury. TECHNIQUE: Frontal, lateral , scaphoid, and oblique images of the left wrist are obtained. COMPARISON: None FINDINGS: There is no acute fracture/dislocation evident in the left wrist. Mild to moderate narrowi ng base of first metacarpal with mild spurring. Carpal joint spaces otherwise fairly well maintained. The overlying soft tissue appears mildly prominent and is thought to reflect product of patient's b plac[place] habitus. IMPRESSION: There is no acute fracture or dislocation in the left wrist.
[2020-03-21] MEDS: ACETAMINOPHEN TAB 325 MG TAB PO PRN (22:13)
[2020-03-22] MEDS: ACETAMINOPHEN TAB 325 MG TAB PO PRN ×2 (05:25→18:27)
[2020-03-22] MEDS: AMPICILLIN-SULBACTAM 3 GM in SODIUM CHLORIDE 0.9% 100 ML IVPB SCH ×3 (05:28→21:29)
[2020-03-22 05:33] LABS: Basophils # (A) 0.1 k/uL (0-0.2); Basophils % (A) 1 %; Eosinophils # (A) 0.3 k/uL (0-0.7); Eosinophils % (A) 3 %; HCT 38.7 % (34.0-46.0); HGB 12.4 gm/dL (11.4-16.0); Lymphocytes # (A) 1.3 k/uL (1.0-4.8); Lymphocytes % (A) 15 %; MCH 30.6 pg (25.0-35.0); MCHC 31.9 g/dL (31.0-37.0); MCV 95.7 fL (80.0-100.0); Mean Platelet Volume 7.8; Monocytes # (A) 0.4 k/uL (0-1.0); Monocytes % (A) 5 %; Neutrophils # (A) 6.9 k/uL (1.3-7.7); Neutrophils % (A) 75 %; Platelet Count 155 k/uL (150-450); RBC 4.04 m/uL (3.80-5.40); RDW 14.2 % (11.5-15.5); WBC 9.2 k/uL (3.8-10.6)
[2020-03-22] MEDS ORDERED: VANCOMYCIN 2,500 MG in SODIUM CHLORIDE 0.9% 500 ML 500 ML IVPB SCH (07:00)
[2020-03-22 07:17] LABS: Glucose,Whole Blood 188 mg/dL (75-99)
[2020-03-22] MEDS: POTASSIUM CHLORIDE ER 20 MEQ TAB.ER PO SCH (08:41)
[2020-03-22] MEDS: PANTOPRAZOLE 40 MG TABLET PO SCH (08:41)
[2020-03-22] MEDS: ASPIRIN 81 MG PO SCH (08:41)
[2020-03-22] MEDS: CHOLECALCIFEROL 1,000 UNIT TAB PO SCH (08:41)
[2020-03-22] MEDS: FUROSEMIDE 20 MG TAB PO SCH (08:41)
[2020-03-22] MEDS: ISOSORBIDE MONONITRATE ER 30 MG TAB.ER.24H PO SCH (08:41)
[2020-03-22] MEDS: METOPROLOL SUCCINATE (ER) 100 MG TAB.ER.24H PO SCH (08:41)
[2020-03-22] MEDS: busPIRone HCl 5 MG TAB PO SCH (08:42)
[2020-03-22] MEDS: MULTIVITAMINS, THERA 1 EACH TAB PO SCH (08:42)
[2020-03-22] MEDS: allopurinoL 300 MG TAB PO SCH (08:42)
[2020-03-22] MEDS: RIVAROXABAN 20 MG TAB PO SCH (08:42)
[2020-03-22] MEDS: INSULIN ASPART (NovoLOG) 100 UNIT/ML VIAL SQ PRN ×3 (08:44→18:23)
[2020-03-22 10:03] LABS: African American GFR (CKD) 70.9 (60.0-200.0); Anion Gap 6.5 mmol/L (4.00-12.00); Calcium 8.9 mg/dL (8.7-10.3); Carbon Dioxide 25.5 mmol/L (21.6-31.8); Non-African American GFR(CKD) 61.2 (60.0-200.0); Potassium 4.4 mmol/L (3.5-5.5)
[2020-03-22 12:08] LABS: Glucose,Whole Blood 189 mg/dL (75-99)
[2020-03-22] MEDS: FLUTICASONE 50MCG/SPRAY NASAL 16GM EA NOSTRIL SCH ×2 (13:24→18:34)
--- NOTE | 2020-03-22 15:04 | P.GSCN ---
History of Present Illness Consult date: 03/22/20 History of present illness: CHIEF COMPLAINT: Left leg cellulitis, status post fall HISTORY OF PRESENT ILLNESS: The patient is a 60 year old female well known to me for workup of gastritis and bariatric workup. The patient has chronic lymphedema bilateral lower extremity including super morbid obesity, BMI over 70 who presented to the hospital for a bariatric seminar. She is brought in by EMS as a mode of transportation for the bariatric seminar. She is status post recent upper endoscopy less than 3 weeks ago for gastritis. She reports intentional weight loss over 100 pounds per requirement of her insurance provider for bariatric surgery. She reports falling from the gurney onto her side and face and had moderate discomfort is resolved. Separately, patient reports being treated for cellulitis of the left leg. "Burning up my left leg." She usually receives treatment and clearance repair with infectious disease provider whom she was unable to contact. She was placed on oral antibiotics where she says is not helping her. As a result of her recent fall from the gurney and severe left leg cellulitis, patient was directed to the emergency room. Since admission, she reports improvement of symptoms. She presented with elevated white blood cell count over 11,000. PAST MEDICAL HISTORY: See list and reviewed PAST SURGICAL HISTORY: See list and reviewed MEDICATIONS: See list and reviewed ALLERGIES: See list and reviewed SOCIAL HISTORY: See list and reviewed FAMILY HISTORY: See list and reviewed. Has bleeding disorder and family. REVIEW OF ORGAN SYSTEMS: CONSTITUTIONAL: No fevers or chills. Intentional weight loss over 100 pounds EYES: Denies any trouble with vision. No glasses. HEENT: No difficulties with hearing. No nosebleeds. No difficulty swallowing. RESPIRATORY: Denies pneumonia. Has seasonal ALLERGIES. Has asthma. Has obstructive sleep apnea. CARDIOVASCULAR: History of congestive heart failure. Has hypertension. GASTROINTESTINAL: History of gastritis, resolved. Has gastroesophageal reflux disease. GENITOURINARY: History of hysterectomy including uterine ablations. Has bladder urgency. NEUROLOGICAL: Has numbness or tingling along the distal extremities. Has diabetic nephropathy. No seizure disorders or headaches. MUSCULOSKELETAL: Has back pain, stiffness or joint arthritis. Has gout. SKIN: No current skin cancer. No rash. PSYCHIATRIC: Has depression. No suicidal thoughts. Has anxiety. ENDOCRINE: Denies current thyroid disorders. Has blood sugar glucose intolerance. HEME/LYMPHATIC: Has chronic lymphedema elephantitis bilateral lower extremities. On chronic blood thinners. History of deep venous thrombosis and pulmonary embolism. ALLERGY/IMMUNOLOGY: No immunoglobulin therapy. No immune deficiencies. BREAST: Denies current breast lumps, pain or nipple discharge. PHYSICAL EXAM: VITALS: Reviewed CONSTITUTIONAL: Well developed and in no acute distress. EYES: Conjuctivae without sclera icterus. Pupils are equally round and reactive to light. Extraocular movements grossly intact. HEAD, EARS, NOSE, THROAT: Moist buccal mucosa. Head is atraumatic, normocephalic. Hears conversational speech. No nasal drainage. NECK: Supple. No JV distention. No thyroidomegaly. RESPIRATORY: Non-labored respirations and equal bilateral excursions. No gross wheezes. CARDIOVASCULAR: Palpable 2+ radial pulses. ABDOMEN: Protuberant and soft nontender. Has panniculitis. Pannus over 30 pounds. LYMPH: Severe lymphedema bilateral extremities. Has moderate erythema and cellulitis more than 20 x 15 cm left posterior lower leg. MUSCULOSKELETAL:Nail and fingers with good capillary refill. SKIN: Warm and well perfused with good skin turgor. No obvious ecchymosis along the face or lower extremities. NEUROLOGIC: Cranial nerves II through XII grossly intact. Sensation upper and extremities intact. No focal or lateralizing signs. PSYCH: Appropriate affect. Alert and oriented to person, place and time. Displays appropriate insight. CLINCAL LABS: Reviewed. Bariatric labs demonstrate low vitamin A and elevated parathyroid hormone. WBC elevated 13.0 to 9.2, normal RADIOLOGY: Left elbow and breasts unremarkable for acute injury. ASSESSMENT: 1. Left leg cellulitis with history of elephantitis lymphedema 2. Status post fall from [facility] 3. Super morbid obesity, BMI over 70 PLAN: 1. Continue IV antibiotics. 2. Recommend consultation for vascular for elephantitis lymphedema 3. Patient history of diabetes, recent hemoglobin A1c unavailable. We'll repeat. 4. Start vitamin A supplement including calcium Past Medical History Past Medical History: Asthma, Diabetes Mellitus, Deep Vein Thrombosis (DVT), GERD/Reflux, Hyperlipidemia, Hypertension, Pulmonary Embolus (PE), Sleep Apnea/CPAP/BIPAP Additional Past Medical History / Comment(s): dvt bilat legs, DIABETIC NEUROPATHY,GOUT,uses cpap,lymphadema History of Any Multi-Drug Resistant Organisms: None Reported Past Surgical History: Cholecystectomy, Hysterectomy, Tonsillectomy, Uterine Ablation Additional Past Surgical History / Comment(s): d & c, laparoscopies, Past Anesthesia/Blood Transfusion Reactions: No Reported Reaction, Family Hist ory of Problems w/ Anesthesia Additional Past Anesthesia/Blood Transfusion Reaction / Comm: mother had hard time waking up from anesthesia Past Psychological History: Anxiety Smoking Status: Never smoker Past Alcohol Use History: None Reported Past Drug Use History: None Reported - Past Family History Father Family Medical History: Cancer, Deep Vein Thrombosis (DVT), Pulmonary Embolus Additional Family Medical History / Comment(s): Factor K-bleeding disorder. cheryl filter Medications and Allergies Home Medications Medication Instructions Recorded Confirmed Type Aspirin EC [Ecotrin Low Dose] 81 mg PO DAILY 01/10/18 03/21/20 History Cetirizine HCl [Zyrtec] 10 mg PO HS 01/10/18 03/21/20 History Cholecalciferol [Vitamin D3 (25 1,000 unit PO DAILY 01/10/18 03/21/20 History Mcg = 1000 Iu)] EPINEPHrine (Auto Inject) [Epipen] 0.3 mg IM ONCE PRN 01/10/18 03/21/20 History Fluticasone Nasal [place] [Flonase 1 spr EA NOSTRIL BID 01/10/18 03/21/20 History Nasal [place]] Furosemide [Lasix] 40 mg PO DAILY 01/10/18 03/21/20 History Isosorbide Mononitrate [Isosorbide 30 mg PO QAM 01/10/18 03/21/20 History Mononitrate ER] Metoprolol Succinate (ER) [Toprol 100 mg PO QAM 01/10/18 03/21/20 History XL] Multivitamin,Therapeutic [Thera] 1 each PO DAILY 01/10/18 03/21/20 History Potassium Chloride [Klor-Con 20] 20 meq PO DAILY 01/10/18 03/21/20 History Pravastatin Sodium [Pravachol] 40 mg PO HS 01/10/18 03/21/20 History Rivaroxaban [Xarelto] 20 mg PO DAILY 01/10/18 03/21/20 History allopurinoL [Zyloprim] 300 mg PO DAILY 01/10/18 03/21/20 History busPIRone HCL 15 mg PO DAILY 01/10/18 03/21/20 History lisinopriL [Zestril] 2.5 mg PO HS 01/10/18 03/21/20 History Insulin Lispro [Admelog] 20 unit SQ TID PRN 08/20/18 03/21/20 History Melatonin 10 mg PO HS 08/20/18 03/21/20 History Omeprazole 40 mg PO DAILY #30 capsule. 08/22/18 03/21/20 Rx Insulin Glargine,Hum.rec.anlog 60 unit SQ HS 03/03/20 03/21/20 History [Basaglar Kwikpen U-100] Doxycycline Hyclate 100 mg PO BID 03/21/20 03/21/20 History Allergies Allergy/AdvReac Type Severity Reaction Status Date / Time bee venom protein (honey bee) Allergy Anaphylaxis Verified 03/21/20 15:05 heparin Allergy "makes Verified 03/21/20 15:05 body stop producing blood" hydrocodone Allergy "norco Verified 03/21/20 15:05 doesn't work" warfarin [From Coumadin] Allergy "makes Verified 03/21/20 15:05 body stop producing blood" Surgical - Exam Vital Signs Temp Pulse Resp BP Pulse Ox 97.0 F L 67 16 140/75 98 03/21/20 12:14 03/21/20 12:14 03/21/20 12:14 03/21/20 12:14 03/21/20 12:14 Results - Labs 03/22/20 04:05 03/22/20 04:05 Abnormal Lab Results - Last 24 Hours (Table) 03/21/20 03/21/20 03/22/20 Range/Units 18:10 20:43 04:05 BUN/Creatinine Ratio 24.00 H (12.00-20.00) Ratio Glucose 185 H (70-110) mg/dL POC Glucose (mg/dL) 210 H 265 H (75-99) mg/dL 03/22/20 03/22/20 Range/Units 07:15 11:57 BUN/Creatinine Ratio (12.00-20.00) Ratio Glucose (70-110) mg/dL POC Glucose (mg/dL) 188 H 189 H (75-99) mg/dL Diabetes panel 03/22/20 Range/Units 04:05 Sodium 135 (135-145) mmol/L Potassium 4.4 (3.5-5.5) mmol/L Chloride 103 (96-109) mmol/L Carbon Dioxide 25.5 (21.6-31.8) mmol/L BUN 24.0 (9.0-27.0) mg/dL Creatinine 1.0 (0.6-1.5) mg/dL Glucose 185 H (70-110) mg/dL Calcium 8.9 (8.7-10.3) mg/dL Calcium panel 03/22/20 Range/Units 04:05 Calcium 8.9 (8.7-10.3) mg/dL Pituitary panel 03/22/20 Range/Units 04:05 Sodium 135 (135-145) mmol/L Potassium 4.4 (3.5-5.5) mmol/L Chloride 103 (96-109) mmol/L Carbon Dioxide 25.5 (21.6-31.8) mmol/L BUN 24.0 (9.0-27.0) mg/dL Creatinine 1.0 (0.6-1.5) mg/dL Glucose 185 H (70-110) mg/dL Calcium 8.9 (8.7-10.3) mg/dL Adrenal panel 03/22/20 Range/Units 04:05 Sodium 135 (135-145) mmol/L Potassium 4.4 (3.5-5.5) mmol/L Chloride 103 (96-109) mmol/L Carbon Dioxide 25.5 (21.6-31.8) mmol/L BUN 24.0 (9.0-27.0) mg/dL Creatinine 1.0 (0.6-1.5) mg/dL Glucose 185 H (70-110) mg/dL Calcium 8.9 (8.7-10.3) mg/dL Assessment and Plan (1) Morbid (severe) obesity due to excess calories Current Visit: Yes Status: Acute Code(s): E66.01 - MORBID (SEVERE) OBESITY DUE TO EXCESS CALORIES SNOMED Code(s): 336295667 (2) BMI 70 and over, adult Current Visit: Yes Status: Acute Code(s): Z68.45 - BODY MASS INDEX (BMI) 70 OR GREATER, ADULT SNOMED Code(s): 738017391 (3) Sleep apnea Current Visit: Yes Status: Acute Code(s): G47.30 - SLEEP APNEA, UNSPECIFIED SNOMED Code(s): 51921868 (4) Elephantiasis Current Visit: Yes Status: Acute Code(s): I89.0 - LYMPHEDEMA, NOT ELSEWHERE CLASSIFIED SNOMED Code(s): 607715815 (5) Lymphedema Current Visit: Yes Status: Acute Code(s): I89.0 - LYMPHEDEMA, NOT ELSEWHERE CLASSIFIED SNOMED Code(s): 037932580 (6) Clotting disorder Current Visit: Yes Status: Acute Code(s): D68.9 - COAGULATION DEFECT, UNSPECIFIED SNOMED Code(s): 771936375 (7) Family history of clotting disorder Current Visit: Yes Status: Acute Code(s): Z83.2 - FAMILY HISTORY OF DIS OF THE BLD/BLD-FORM ORG/IMMUN [facility] SNOMED Code(s): 545313141520614 (8) Chronic anticoagulation Current Visit: Yes Status: Acute Code(s): Z79.01 - SENIOR BUYER (CURRENT) USE OF ANTICOAGULANTS SNOMED Code(s): 097594804 (9) Hypertension Current Visit: Yes Status: Acute Code(s): I10 - ESSENTIAL (PRIMARY) HYPERTENSION SNOMED Code(s): 83628880 (10) Diabetic neuropathy Current Visit: Yes Status: Acute Code(s): E11.40 - TYPE 2 DIABETES MELLITUS WITH DIABETIC NEUROPATHY, UNSP SNOMED Code(s): 620750309 (11) Cellulitis of left leg Current Visit: Yes Status: Acute Code(s): L03.116 - CELLULITIS OF LEFT LOWER LIMB SNOMED Code(s): 110666427 (12) Fall from high chair Current Visit: Yes Status: Acute Code(s): W07.XXXA - FALL FROM CHAIR, INITIAL ENCOUNTER SNOMED Code(s): 57267085
--- NOTE | 2020-03-22 15:19 | P.PN ---
Subjective Progress Note Date: 03/22/20 Principal diagnosis: Cellulitis left lower extremity Chronic lymphedema bilateral lower extremities Morbid obesity 60-year-old female presenting to the emergency department with concerns for cellulitis. Patient was at the clinic with Dr. Del Angel who did evaluate her and recommend she come to the emergency department. Patient has been on oral antibiotics without improvement of symptoms. Patient does have history of similar symptoms previously requiring hospitalization and infectious disease consult with a cocktail of antibiotics. Patient does have some discomfort in th e area. Area involved is left greater than right posterior leg. Patient did also have a fall out of the ambulance upon arrival to the hospital. Patient states she just bruised her left elbow and scratch her right elbow. 03/22/2020 Patient is seen and evaluated in room at bedside; reports stiffness and swelling of right foot; claims redness and burning pain is improved and right lower extremity Patient remains afebrile with stable vital signs; white blood count remains stable; patient is currently on IV antibiotics a grade to be continue; ID to see patient and make further recommendations; we will consult vascular surgery for elephantiasis Objective - Vital Signs Vital signs: Vital Signs Temp 98.5 F 03/22/20 05:00 Pulse 75 03/22/20 05:00 Resp 18 03/21/20 21:00 BP 140/77 03/22/20 05:00 Pulse Ox 97 03/22/20 05:00 Intake & Output 03/21/20 03/22/20 03/22/20 18:59 06:59 18:59 Intake Total 2100 Output Total 850 801 Balance 1250 -801 Weight 199.581 kg Intake: Intake, IV Titration 200 Amount Ampicillin-Sulbactam 3 gm 200 In Sodium Chloride 0.9% 100 ml @ 200 mls/hr IVPB Q8H [facility] Rx#:[id number] Oral 1900 Output: Urine 850 800 Urine/Stool Mix 1 Other: # Voids 1 - Exam PHYSICAL EXAMINATION: GENERAL: The patient is alert and oriented x3, not in any acute distress. Well developed, well nourished. HEENT: Pupils are round and equally reacting to light. EOMI. No scleral icterus. No conjunctival pallor. Normocephalic, atraumatic. No pharyngeal erythema. No thyromegaly. CARDIOVASCULAR: S1 and S2 present. No murmurs, rubs, or gallops. PULMONARY: Chest is clear to auscultation, no wheezing or crackles. ABDOMEN: Soft, nontender, nondistended, normoactive bowel sounds. No palpable organomegaly. MUSCULOSKELETAL: No joint swelling or deformity. EXTREMITIES: Elephantiasis. NEUROLOGICAL: Gross neurological examination did not reveal any focal deficits. SKIN: No rashes. - Labs CBC & Chem 7: 03/22/20 04:05 03/22/20 04:05 Labs: Abnormal Lab Results - Last 24 Hours (Table) 03/21/20 03/21/20 03/21/20 Range/Units 13:16 13:16 18:10 WBC 13.0 H (3.8-10.6) k/uL Neutrophils # 9.9 H (1.3-7.7) k/uL BUN 21 H (7-17) mg/dL BUN/Creatinine Ratio (12.00-20.00) Ratio Glucose 222 H (74-99) mg/dL POC Glucose (mg/dL) 210 H (75-99) mg/dL 03/21/20 03/22/20 03/22/20 Range/Units 20:43 04:05 07:15 WBC (3.8-10.6) k/uL Neutrophils # (1.3-7.7) k/uL BUN (7-17) mg/dL BUN/Creatinine Ratio 24.00 H (12.00-20.00) Ratio Glucose 185 H (74-99) mg/dL POC Glucose (mg/dL) 265 H 188 H (75-99) mg/dL Assessment and Plan Assessment: 1. Cellulitis bilateral lower extremities; left worse than right; patient started on IV Unasyn; blood cultures are done 2. Lymphedema bilateral lower extremities; symptomatic treatment 3. Diabetes mellitus type 1; continue Levemir 60 units subcu daily at bedtime; patient takes 20 units subcu before meals each meal; we will continue to monitor blood sugars and cover with sliding scale 4. Hypertension; lisinopril 2.5 mg by mouth daily at bedtime along with metoprolol 100 mg daily 5. Hyperlipidemia; Pravachol 40 mg by mouth daily at bedtime 6. DVT; by history; continue anticoagulation with Xarelto
[2020-03-22 17:13] LABS: Glucose,Whole Blood 180 mg/dL (75-99)
[2020-03-22 18:33] LABS: Hemoglobin A1C 9.5 % (4.0-6.0)
[2020-03-22] MEDS: LORATADINE 10 MG TAB PO SCH (18:33)
[2020-03-22 20:31] LABS: Glucose,Whole Blood 144 mg/dL (75-99)
[2020-03-22] MEDS: MELATONIN 5 MG TABLET PO SCH (21:29)
[2020-03-22] MEDS: INSULIN DETEMIR (LEVEMIR) 100 UNIT/ML SYR SQ SCH (21:29)
[2020-03-22] MEDS: busPIRone HCl 10 MG TAB PO SCH (21:29)
[2020-03-22] MEDS: PRAVASTATIN SODIUM 40 MG TAB PO SCH (21:29)
--- NOTE | 2020-03-22 21:41 | P.CONS ---
History of Present Illness - Reason for Consult Consult date: 03/22/20 Left leg cellulitis Requesting physician: Alfred Seymour - Chief Complaint Left posterior leg pain swelling redness x 1 week - History of Present Illness Patient is a 60-year-old morbidly obese female who apparently was sent to the ER for evaluation after apparently the patient did fell of the gurney while being transported by the EMS and the patient said she came for the bariatric conference, patient apparently has been dealing with a rash/erythema to the left posterior leg at the popliteal fossa that has been going on for about a week. Apparently has been treated by her infectious disease physician was to write cream without any improvement, patient is complaining of burning pain to the left posterior leg area intensity 6-7 out of 10 and no radiation patient currently tolerating Lipitor or any drainage on arrival to the ER the patient was afebrile did have mildly elevated white count of 11,000 patient was started on Unasyn as well as vancomycin and infectious disease was consulted for further management of antibiotic therapy Review of Systems Positive point has been mentioned in the HPI rest of the systems are negative Past Medical History Past Medical History: Asthma, Diabetes Mellitus, Deep Vein Thrombosis (DVT), GERD/Reflux, Hyperlipidemia, Hypertension, Pulmonary Embolus (PE), Sleep Apnea/CPAP/BIPAP Additional Past Medical History / Comment(s): dvt bilat legs, DIABETIC NEUROPATHY,GOUT,uses cpap,lymphadema History of Any Multi-Drug Resistant Organisms: None Reported Past Surgical History: Cholecystectomy, Hysterectomy, Tonsillectomy, Uterine Ablation Additional Past Surgical History / Comment(s): d & c, laparoscopies, Past Anesthesia/Blood Transfusion Reactions: No Reported Reaction, Family History of Problems w/ Anesthesia Additional Past Anesthesia/Blood Transfusion Reaction / Comm: mother had hard time waking up from anesthesia Past Psychological History: Anxiety Smoking Status: Never smoker Past Alcohol Use History: None Reported Past Drug Use History: None Reported - Past Family History Father Family Medical History: Cancer, Deep Vein Thrombosis (DVT), Pulmonary Embolus Additional Family Medical History / Comment(s): Factor K-bleeding disorder. cheryl filter Medications and Allergies Home Medications Medication Instructions Recorded Confirmed Type Aspirin EC [Ecotrin Low Dose] 81 mg PO DAILY 01/10/18 03/21/20 History Cetirizine HCl [Zyrtec] 10 mg PO HS 01/10/18 03/21/20 History Cholecalciferol [Vitamin D3 (25 1,000 unit PO DAILY 01/10/18 03/21/20 History Mcg = 1000 Iu)] EPINEPHrine (Auto Inject) [Epipen] 0.3 mg IM ONCE PRN 01/10/18 03/21/20 History Fluticasone Nasal [place] [Flonase 1 spr EA NOSTRIL BID 01/10/18 03/21/20 History Nasal [place]] Furosemide [Lasix] 40 mg PO DAILY 01/10/18 03/21/20 History Isosorbide Mononitrate [Isosorbide 30 mg PO QAM 01/10/18 03/21/20 History Mononitrate ER] Metoprolol Succinate (ER) [Toprol 100 mg PO QAM 01/10/18 03/21/20 History XL] Multivitamin,Therapeutic [Thera] 1 each PO DAILY 01/10/18 03/21/20 History Potassium Chloride [Klor-Con 20] 20 meq PO DAILY 01/10/18 03/21/20 History Pravastatin Sodium [Pravachol] 40 mg PO HS 01/10/18 03/21/20 History Rivaroxaban [Xarelto] 20 mg PO DAILY 01/10/18 03/21/20 History allopurinoL [Zyloprim] 300 mg PO DAILY 01/10/18 03/21/20 History busPIRone HCL 15 mg PO DAILY 01/10/18 03/21/20 History lisinopriL [Zestril] 2.5 mg PO HS 01/10/18 03/21/20 History Insulin Lispro [Admelog] 20 unit SQ TID PRN 08/20/18 03/21/20 History Melatonin 10 mg PO HS 08/20/18 03/21/20 History Omeprazole 40 mg PO DAILY #30 capsule. 08/22/18 03/21/20 Rx Insulin Glargine,Hum.rec.anlog 60 unit SQ HS 03/03/20 03/21/20 History [Basaglar [place] U-100] Doxycycline Hyclate 100 mg PO BID 03/21/20 03/21/20 History busPIRone HCL 30 mg PO HS 03/22/20 03/22/20 History Allergies Allergy/AdvReac Type Severity Reaction Status Date / Time bee venom protein (honey bee) Allergy Anaphylaxis Verified 03/21/20 15:05 heparin Allergy "makes Verified 03/21/20 15:05 body stop producing blood" hydrocodone Allergy "norco Verified 03/21/20 15:05 doesn't work" warfarin [From Coumadin] Allergy "makes Verified 03/21/20 15:05 body stop producing blood" Physical Exam Vitals: Vital Signs Temp Pulse Pulse Resp BP BP Pulse Ox 03/22/20 11:54 97.6 F 66 18 109/57 94 L 03/22/20 05:00 98.5 F 75 140/77 97 03/21/20 21:00 97.7 F 72 18 145/79 95 03/21/20 15:25 97.7 F 65 18 137/82 96 03/21/20 14:20 97.6 F 69 18 132/80 98 Intake and Output 03/21/20 03/22/20 03/22/20 22:59 06:59 14:59 Intake Total 300 1800 Output Total 850 801 Balance 300 950 -801 Intake: Intake, IV Titration 200 Amount Ampicillin-Sulbactam 3 gm 200 In Sodium Chloride 0.9% 100 ml @ 200 mls/hr IVPB Q8H [facility] Rx#:[id number] Oral 300 1600 Output: Urine 850 800 Urine/Stool Mix 1 Other: # Voids 1 GENERAL DESCRIPTION: Middle-aged female lying in bed, no distress. No tachypnea or accessory muscle of respiration use. HEENT: Shows Pallor , no scleral icterus. Oral mucous membrane is dry. No pharyngeal erythema or thrush NECK: Trachea central, no thyromegaly. LUNGS: Unlabored breathing. Clear to auscultation anteriorly. No wheeze or crackle. HEART: S1, S2, regular rate and rhythm. No loud murmur ABDOMEN: Soft, no tenderness , guarding or rigidity, no organomegaly EXTREMITIES: Left posterior leg at the popliteal fossa did have an erythematous rash no drainage or wound SKIN: No rash, no masses palpable. NEUROLOGICAL: The patient is awake, alert, oriented x3, mood and affect normal. Results CBC & Chem 7: 03/22/20 04:05 03/22/20 04:05 Labs: Abnormal Lab Results - Last 24 Hours (Table) 03/21/20 03/21/20 03/21/20 Range/Units 13:16 13:16 18:10 WBC 13.0 H (3.8-10.6) k/uL Neutrophils # 9.9 H (1.3-7.7) k/uL BUN 21 H (7-17) mg/dL BUN/Creatinine Ratio (12.00-20.00) Ratio Glucose 222 H (74-99) mg/dL POC Glucose (mg/dL) 210 H (75-99) mg/dL 03/21/20 03/22/20 03/22/20 Range/Units 20:43 04:05 07:15 WBC (3.8-10.6) k/uL Neutrophils # (1.3-7.7) k/uL BUN (7-17) mg/dL BUN/Creatinine Ratio 24.00 H (12.00-20.00) Ratio Glucose 185 H (74-99) mg/dL POC Glucose (mg/dL) 265 H 188 H (75-99) mg/dL 03/22/20 Range/Units 11:57 WBC (3.8-10.6) k/uL Neutrophils # (1.3-7.7) k/uL BUN (7-17) mg/dL BUN/Creatinine Ratio (12.00-20.00) Ratio Glucose (74-99) mg/dL POC Glucose (mg/dL) 189 H (75-99) mg/dL Assessment and Plan Assessment: 1- patient with left posterior leg rash/ popliteal Fossa area cutaneous candidiasis with concern for possible secondary bacterial cellulitis likely from gram-positive skin lala clinically doubt MRSA or gram-negative infection now evidence of any abscess (1) Cellulitis of left leg Current Visit: Yes Status: Acute Code(s): L03.116 - CELLULITIS OF LEFT LOWER LIMB SNOMED Code(s): 561081094 Plan: 1- discontinue the vancomycin and Unasyn 2- cefazolin 3 g every 8 hours 3-nystatin powder to the left popliteal fossa Cutaneous candidiasis twice a day We will follow on clinical condition and cultures to further adjust medication if needed Thank you for this consultation will follow this patient with you Time with Patient: Greater than 30
[2020-03-22] MEDS: NYSTATIN 100,000 UNIT/GM POWD 15 GM TOPICAL SCH (22:08)
[2020-03-23] MEDS: ceFAZolin 3 GM in SODIUM CHLORIDE 0.9% 100 ML IVPB SCH ×4 (00:19→23:49)
[2020-03-23 03:58] LABS: Basophils # (A) 0.1 k/uL (0-0.2); Basophils % (A) 1 %; Eosinophils # (A) 0.4 k/uL (0-0.7); Eosinophils % (A) 5 %; HCT 40.7 % (34.0-46.0); HGB 12.9 gm/dL (11.4-16.0); Lymphocytes % (A) 25 %; MCH 30.4 pg (25.0-35.0); MCHC 31.7 g/dL (31.0-37.0); MCV 95.9 fL (80.0-100.0); Mean Platelet Volume 7.6; Monocytes # (A) 0.4 k/uL (0-1.0); Monocytes % (A) 5 %; Neutrophils # (A) 5.1 k/uL (1.3-7.7); Neutrophils % (A) 63 %; Platelet Count 184 k/uL (150-450); RBC 4.24 m/uL (3.80-5.40); RDW 14.7 % (11.5-15.5); WBC 8.2 k/uL (3.8-10.6)
[2020-03-23 06:55] LABS: Glucose,Whole Blood 113 mg/dL (75-99)
[2020-03-23] MEDS: busPIRone HCl 5 MG TAB PO SCH (07:58)
[2020-03-23] MEDS: ASPIRIN 81 MG PO SCH (07:58)
[2020-03-23] MEDS: allopurinoL 300 MG TAB PO SCH (08:01)
[2020-03-23] MEDS: PANTOPRAZOLE 40 MG TABLET PO SCH (08:01)
[2020-03-23] MEDS: METOPROLOL SUCCINATE (ER) 100 MG TAB.ER.24H PO SCH (08:01)
[2020-03-23] MEDS: CHOLECALCIFEROL 1,000 UNIT TAB PO SCH (08:01)
[2020-03-23] MEDS: ISOSORBIDE MONONITRATE ER 30 MG TAB.ER.24H PO SCH (08:01)
[2020-03-23] MEDS: FUROSEMIDE 20 MG TAB PO SCH ×2 (08:02→15:59)
[2020-03-23] MEDS: POTASSIUM CHLORIDE ER 20 MEQ TAB.ER PO SCH ×2 (08:02→15:59)
[2020-03-23] MEDS: NYSTATIN 100,000 UNIT/GM POWD 15 GM TOPICAL SCH ×2 (08:02→20:37)
[2020-03-23] MEDS: FLUTICASONE 50MCG/SPRAY NASAL 16GM EA NOSTRIL SCH ×2 (08:03→20:36)
[2020-03-23] MEDS: RIVAROXABAN 20 MG TAB PO SCH (08:05)
[2020-03-23] MEDS: MULTIVITAMINS, THERA 1 EACH TAB PO SCH (08:07)
[2020-03-23 10:13] LABS: African American GFR (CKD) 80.5 (60.0-200.0); Anion Gap 7.3 mmol/L (4.00-12.00); BUN/Creat Ratio 23.33 Ratio (12.00-20.00); Calcium 8.8 mg/dL (8.7-10.3); Carbon Dioxide 26.7 mmol/L (21.6-31.8); Non-African American GFR(CKD) 69.5 (60.0-200.0)
[2020-03-23 11:28] LABS: Glucose,Whole Blood 184 mg/dL (75-99)
[2020-03-23 13:13] VITALS: BMI 71.0
--- NOTE | 2020-03-23 15:41 | P.PN ---
<PkbrookeKady - Last Filed: 03/23/20 15:33> Subjective Progress Note Date: 03/23/20 CHIEF COMPLAINT: Left leg cellulitis, status post fall HISTORY OF PRESENT ILLNESS: Patient's left leg cellulitis is showing improvemen t. She'll be evaluated by vascular surgery their consult is pending. White count 8.2. She is afebrile. Reports having bowel movements. She is tolerating diet. PHYSICAL EXAM: VITAL SIGNS: Reviewed GENERAL: Well-developed in no acute distress. HEENT: No sclera icterus. Extraocular movements grossly intact. Moist buccal mucosa. Head is atraumatic, normocephalic. Hears conversational speech. No nasal drainage. NECK: Supple without lymphadenopathy. CHEST: Non-labored respirations and equal bilateral excursions. CARDIOVASCULAR: Palpable 2+ radial pulses. ABDOMEN: Soft. Nondistended. Nontender. MUSCULOSKELETAL: No clubbing or cyanosis. NEUROLOGIC: No focal or lateralizing signs. Cranial nerves II through XII grossly intact. PSYCH: Appropriate affect. Alert and oriented to person, place and time. SKIN: Well perfused. Good skin turgor. LYMPH: Severe lymphedema bilateral extremities. Has moderate erythema and cellulitis more than 20 x 15 cm left posterior lower leg. ASSESSMENT: 1. Left leg cellulitis with history of elephantitis lymphedema 2. Status post fall from [facility] 3. Super morbid obesity, BMI over 70 PLAN: 1. Continue IV antibiotics per ID 2. Recommend consultation for vascular for elephantitis lymphedema 3. Continue vitamin A supplement including calcium 4. Surgery will sign off Physician Surgery Aide note has been reviewed by physician. Signing provider agrees with the documented findings, assessment, and plan of care. Objective - Vital Signs Vital signs: Vital Signs Temp 98.3 F 03/23/20 11:54 Pulse 60 03/23/20 11:54 Resp 16 03/23/20 11:54 BP 120/61 03/23/20 11:54 Pulse Ox 96 03/23/20 11:54 Intake & Output 03/22/20 03/23/20 03/23/20 18:59 06:59 18:59 Intake Total 500 200 Output Total 3851 1400 Balance -3351 -1200 Weight 199.581 kg Intake: Intake, IV Titration 500 200 Amount Ampicillin-Sulbactam 3 gm 100 In Sodium Chloride 0.9% 100 ml @ 200 mls/hr IVPB Q8H [facility] Rx#:[id number] Vancomycin 2,500 mg In 500 Sodium Chloride 0.9% 500 ml 500 ml @ 167 mls/hr IVPB Q16H [facility] Rx#: [id number] ceFAZolin 3 gm In Sodium 100 Chloride 0.9% 100 ml @ 200 mls/hr IVPB Q8HR [facility] Rx#:[id number] Output: Urine 3850 1400 Urine/Stool Mix 1 Other: # Bowel Movements 2 - Labs CBC & Chem 7: 03/23/20 03:09 03/23/20 03:09 Labs: Abnormal Lab Results - Last 24 Hours (Table) 03/22/20 03/22/20 03/22/20 Range/Units 04:05 17:11 20:30 BUN/Creatinine Ratio (12.00-20.00) Ratio POC Glucose (mg/dL) 180 H 144 H (75-99) mg/dL Hemoglobin A1c 9.5 H (4.0-6.0) % 03/23/20 03/23/20 03/23/20 Range/Units 03:09 06:53 11:27 BUN/Creatinine Ratio 23.33 H (12.00-20.00) Ratio POC Glucose (mg/dL) 113 H 184 H (75-99) mg/dL Hemoglobin A1c (4.0-6.0) % Microbiology - Last 24 Hours (Table) 03/21/20 13:16 Blood Culture - Preliminary Blood No Growth after 24 hours <Emilie Hermosillo - Last Filed: 03/23/20 19:08> Subjective Patient seen and evaluated. Please see additional recommendations below CHIEF COMPLAINT: Left leg cellulitis, status post fall, super morbid obesity HISTORY OF PRESENT ILLNESS: The patient is a 60 year old female who presents with super morbid obesity, BMI over 70, recent status post fall including acute left leg cellulitis. She was being evaluated for the bariatric program. She had additional concerns regarding workup for bariatric program. She completed blood work several weeks ago. Separately, she reports improvement of her left leg cellulitis. No reports of fevers or chills. REVIEW OF ORGAN SYSTEMS: No fevers or chills. No nausea or vomiting. PHYSICAL EXAM: VITALS: Reviewed CONSTITUTIONAL: Well developed and in no acute distress. EYES: Conjuctivae without sclera icterus. Pupils are equally round and reactive to light. Extraocular movements grossly intact. HEAD, EARS, NOSE, THROAT: Moist buccal mucosa. Head is atraumatic, normocephalic. Hears conversational speech. No nasal drainage. RESPIRATORY: Non-labored respirations and equal bilateral excursions. No gross wheezes. CARDIOVASCULAR: Palpable 2+ radial pulses. ABDOMEN: Protuberant and soft nontender. Has panniculitis. Pannus over 30 pounds. LYMPH: Severe lymphedema bilateral extremities. Left lower extremity cellulitis MUSCULOSKELETAL:Nail and fingers with good capillary refill. SKIN: Warm and well perfused with good skin turgor. No obvious ecchymosis along the face or lower extremities. NEUROLOGIC: Cranial nerves II through XII grossly intact. Sensation upper and extremities intact. No focal or lateralizing signs. PSYCH: Appropriate affect. Alert and oriented to person, place and time. Displays appropriate insight. CLINCAL LABS: Reviewed. Bariatric labs demonstrate low vitamin A and elevated parathyroid hormone. Hemoglobin A1c 9.5% ASSESSMENT: 1. Left leg cellulitis with history of elephantitis lymphedema 2. Status post fall from [facility] 3. Super morbid obesity, BMI over 70 4. Uncontrolled insulin-dependent type 2 diabetes PLAN: 1. She is evaluating for bariatric surgery for a BMI over 70. Hemoglobin A1c returned elevated 9.5%. 2. Will need lower hemoglobin A1c less than 8.0. In the past, hemoglobin A1c was 7.5%. 3. Recommend treatment for cellulitis. 4. Will need repeat hemoglobin A1c within 2-3 months with blood sugars between 120-150. 5. Additionally, patient has vitamin A deficiency including elevated parathyroid hormone. 6. We'll start calcium 1200 mg daily including vitamin A 8000 units daily. 7. All questions addressed with patient otherwise. 8. Recommend dietitian and diabetic education. Objective - Vital Signs Vital signs: Vital Signs Temp 98.3 F 03/23/20 11:54 Pulse 60 03/23/20 11:54 Resp 16 03/23/20 11:54 BP 120/61 03/23/20 11:54 Pulse Ox 96 03/23/20 11:54 Intake & Output 03/23/20 03/23/20 03/24/20 06:59 18:59 06:59 Intake Total 200 240 Output Total 1400 850 Balance -1200 -610 Weight 199.581 kg Intake: Intake, IV Titration 200 Amount Ampicillin-Sulbactam 3 gm 100 In Sodium Chloride 0.9% 100 ml @ 200 mls/hr IVPB Q8H [facility] Rx#:[id number] ceFAZolin 3 gm In Sodium 100 Chloride 0.9% 100 ml @ 200 mls/hr IVPB Q8HR [facility] Rx#:[id number] Oral 240 Output: Urine 1400 850 Other: # Bowel Movements 2 - Labs CBC & Chem 7: 03/23/20 03:09 03/23/20 03:09 Labs: Abnormal Lab Results - Last 24 Hours (Table) 03/22/20 03/23/20 03/23/20 Range/Units 20:30 03:09 06:53 BUN/Creatinine Ratio 23.33 H (12.00-20.00) Ratio POC Glucose (mg/dL) 144 H 113 H (75-99) mg/dL 03/23/20 03/23/20 Range/Units 11:27 17:18 BUN/Creatinine Ratio (12.00-20.00) Ratio POC Glucose (mg/dL) 184 H 253 H (75-99) mg/dL Microbiology - Last 24 Hours (Table) 03/21/20 13:16 Blood Culture - Preliminary Blood No Growth after 48 hours Assessment and Plan (1) Morbid (severe) obesity due to excess calories Current Visit: Yes Status: Acute Code(s): E66.01 - MORBID (SEVERE) OBESITY DUE TO EXCESS CALORIES SNOMED Code(s): 445260803 (2) BMI 70 and over, adult Current Visit: Yes Status: Acute Code(s): Z68.45 - BODY MASS INDEX (BMI) 70 OR GREATER, ADULT SNOMED Code(s): 637257897 (3) Sleep apnea Current Visit: Yes Status: Acute Code(s): G47.30 - SLEEP APNEA, UNSPECIFIED SNOMED Code(s): 45328748 (4) Elephantiasis Current Visit: Yes Status: Acute Code(s): I89.0 - LYMPHEDEMA, NOT ELSEWHERE CLASSIFIED SNOMED Code(s): 429819635 (5) Lymphedema Current Visit: Yes Status: Acute Code(s): I89.0 - LYMPHEDEMA, NOT ELSEWHERE CLASSIFIED SNOMED Code(s): 022305742 (6) Clotting disorder Current Visit: Yes Status: Acute Code(s): D68.9 - COAGULATION DEFECT, UNSPECIFIED SNOMED Code(s): 863124131 (7) Family history of clotting disorder Current Visit: Yes Status: Acute Code(s): Z83.2 - FAMILY HISTORY OF DIS OF THE BLD/BLD-FORM ORG/IMMUN [facility] SNOMED Code(s): 775458587182543 (8) Chronic anticoagulation Current Visit: Yes Status: Acute Code(s): Z79.01 - CUSTODIAL (CURRENT) USE OF ANTICOAGULANTS SNOMED Code(s): 089668948 (9) Hypertension Current Visit: Yes Status: Acute Code(s): I10 - ESSENTIAL (PRIMARY) HYPERTENSION SNOMED Code(s): 90174370 (10) Diabetic neuropathy Current Visit: Yes Status: Acute Code(s): E11.40 - TYPE 2 DIABETES MELLITUS WITH DIABETIC NEUROPATHY, UNSP SNOMED Code(s): 686889935 (11) Cellulitis of left leg Current Visit: Yes Status: Acute Code(s): L03.116 - CELLULITIS OF LEFT LOWER LIMB SNOMED Code(s): 712269225 (12) Fall from high chair Current Visit: Yes Status: Acute Code(s): W07.XXXA - FALL FROM CHAIR, INITIAL ENCOUNTER SNOMED Code(s): 97623100 (13) Uncontrolled diabetes mellitus, with long-term current use of insulin Current Visit: Yes Status: Acute Code(s): E11.65 - TYPE 2 DIABETES MELLITUS WITH HYPERGLYCEMIA; Z79.4 - HUMAN SERVICES PROFESSIONAL (CURRENT) USE OF INSULIN SNOMED Code(s): 62069356 (14) Vitamin A deficiency Current Visit: Yes Status: Acute Code(s): E50.9 - VITAMIN A DEFICIENCY, UNSPECIFIED SNOMED Code(s): 72217480 (15) Secondary hyperparathyroidism Current Visit: Yes Status: Acute Code(s): N25.81 - SECONDARY HYPERPARATHYROIDISM OF RENAL ORIGIN SNOMED Code(s): 06377053
--- NOTE | 2020-03-23 16:28 | PN ---
PROGRESS NOTE DATE OF SERVICE: 03/23/2020 REASON FOR FOLLOWUP: Left leg cellulitis and cutaneous candidiasis. INTERVAL HISTORY: The patient is currently afebrile. The patient is feeling better, breathing comfortably. The patient denies having any chest pain or cough. No nausea or vomiting or abdominal pain. Overall burning pain to the left leg has improved. PHYSICAL EXAMINATION: Blood pressure 120/61 with a pulse of 60, temperature 98.3. She is 96% on room air. General description is a middle-aged female lying in bed in no distress. RESPIRATORY SYSTEM: Unlabored breathing. Clear to auscultation anteriorly. HEART: S1, S2. Regular rate and rhythm. ABDOMEN: Soft. No tenderness. Left leg swelling has slightly decreased. LABS: Hemoglobin is 12.1, white count 8.2, BUN of 21, creatinine 0.9. DIAGNOSTIC IMPRESSION AND PLAN: Patient with left posterior leg cellulitis in this patient with evidence of cutaneous candidiasis of the popliteal fossa. Patient to continue cefazolin 3 grams q.8 hours and finish therapy with oral Keflex along with nystatin powder and monitor clinical course closely. Continue with supportive care. MMODL / IJN: [id number] /
[2020-03-23 17:19] LABS: Glucose,Whole Blood 253 mg/dL (75-99)
[2020-03-23 20:32] LABS: Glucose,Whole Blood 251 mg/dL (75-99)
[2020-03-23] MEDS: busPIRone HCl 10 MG TAB PO SCH (20:35)
[2020-03-23] MEDS: PRAVASTATIN SODIUM 40 MG TAB PO SCH (20:35)
[2020-03-23] MEDS: LORATADINE 10 MG TAB PO SCH (20:35)
[2020-03-23] MEDS: INSULIN DETEMIR (LEVEMIR) 100 UNIT/ML SYR SQ SCH (20:35)
[2020-03-23] MEDS: MELATONIN 5 MG TABLET PO SCH (20:35)
[2020-03-23] MEDS: ACETAMINOPHEN TAB 325 MG TAB PO PRN (22:20)
[2020-03-24 01:00] LABS: Glucose,Whole Blood 253 mg/dL (75-99)
[2020-03-24] MEDS: NYSTATIN 100,000 UNIT/GM POWD 15 GM TOPICAL SCH (06:38)
[2020-03-24 06:59] LABS: Glucose,Whole Blood 214 mg/dL (75-99)
[2020-03-24] MEDS: PANTOPRAZOLE 40 MG TABLET PO SCH (07:54)
[2020-03-24] MEDS: FUROSEMIDE 20 MG TAB PO SCH (07:55)
[2020-03-24] MEDS: POTASSIUM CHLORIDE ER 20 MEQ TAB.ER PO SCH (07:55)
[2020-03-24] MEDS: ASPIRIN 81 MG PO SCH (07:56)
[2020-03-24] MEDS: CHOLECALCIFEROL 1,000 UNIT TAB PO SCH (07:56)
[2020-03-24] MEDS: busPIRone HCl 5 MG TAB PO SCH (07:56)
[2020-03-24] MEDS: allopurinoL 300 MG TAB PO SCH (07:56)
[2020-03-24] MEDS: METOPROLOL SUCCINATE (ER) 100 MG TAB.ER.24H PO SCH (07:57)
[2020-03-24] MEDS: ISOSORBIDE MONONITRATE ER 30 MG TAB.ER.24H PO SCH (07:57)
[2020-03-24] MEDS: ceFAZolin 3 GM in SODIUM CHLORIDE 0.9% 100 ML IVPB SCH ×2 (07:58→16:19)
[2020-03-24] MEDS: RIVAROXABAN 20 MG TAB PO SCH (07:59)
[2020-03-24] MEDS: FLUTICASONE 50MCG/SPRAY NASAL 16GM EA NOSTRIL SCH (07:59)
[2020-03-24] MEDS: MULTIVITAMINS, THERA 1 EACH TAB PO SCH (08:12)
[2020-03-24] MEDS: INSULIN ASPART (NovoLOG) 100 UNIT/ML VIAL SQ PRN ×3 (08:13→17:40)
[2020-03-24] MEDS ORDERED: VITAMIN A 10,000 UNIT CAPSULE PO SCH (09:00)
[2020-03-24] MEDS ORDERED: CALCIUM CARBONATE 500 MG CHEWABLE PO SCH (09:00)
--- NOTE | 2020-03-24 09:45 | P.PN ---
Subjective Progress Note Date: 03/23/20 Principal diagnosis: Cellulitis left lower extremity Chronic lymphedema bilateral lower extremities Morbid obesity 60-year-old female presenting to the emergency department with concerns for cellulitis. Patient was at the clinic with Dr. Del Angel who did evaluate her and recommend she come to the emergency department. Patient has been on oral antibiotics without improvement of symptoms. Patient does have history of similar symptoms previously requiring hospitalization and infectious disease consult with a cocktail of antibiotics. Patient does have some discomfort in t he area. Area involved is left greater than right posterior leg. Patient did also have a fall out of the ambulance upon arrival to the hospital. Patient states she just bruised her left elbow and scratch her right elbow. 03/22/2020 Patient is seen and evaluated in room at bedside; reports stiffness and swelling of right foot; claims redness and burning pain is improved and right lower extremity Patient remains afebrile with stable vital signs; white blood count remains stable; patient is currently on IV antibiotics a grade to be continue; ID to see patient and make further recommendations; we will consult vascular surgery for elephantiasis 03/23/2020 Patient is currently lying in the bed comfortably. Still complains of right lower extremity heaviness and swelling and also burning sensation. Patient is being continued on cefazolin for right lower extremity cellulitis. Patient does have chronic bilateral lower extremity lymphedema. ID is following. Cultures have been negative so far. Patient has been afebrile. No complaints of chest pain or shortness of breath. Laboratory data reviewed Current medications reviewed. Objective - Vital Signs Vital signs: Vital Signs Temp 98.3 F 03/23/20 11:54 Pulse 60 03/23/20 11:54 Resp 16 03/23/20 11:54 BP 120/61 03/23/20 11:54 Pulse Ox 96 03/23/20 11:54 Intake & Output 03/22/20 03/23/20 03/23/20 18:59 06:59 18:59 Intake Total 500 200 Output Total 3851 1400 Balance -3351 -1200 Weight 199.581 kg Intake: Intake, IV Titration 500 200 Amount Ampicillin-Sulbactam 3 gm 100 In Sodium Chloride 0.9% 100 ml @ 200 mls/hr IVPB Q8H [facility] Rx#:[id number] Vancomycin 2,500 mg In 500 Sodium Chloride 0.9% 500 ml 500 ml @ 167 mls/hr IVPB Q16H [facility] Rx#: [id number] ceFAZolin 3 gm In Sodium 100 Chloride 0.9% 100 ml @ 200 mls/hr IVPB Q8HR [facility] Rx#:[id number] Output: Urine 3850 1400 Urine/Stool Mix 1 Other: # Bowel Movements 2 - Exam PHYSICAL EXAMINATION: GENERAL: The patient is alert and oriented x3, not in any acute distress. Well developed, well nourished. HEENT: Pupils are round and equally reacting to light. EOMI. No scleral icterus. No conjunctival pallor. Normocephalic, atraumatic. No pharyngeal erythema. No thyromegaly. CARDIOVASCULAR: S1 and S2 present. No murmurs, rubs, or gallops. PULMONARY: Chest is clear to auscultation, no wheezing or crackles. ABDOMEN: Soft, nontender, nondistended, normoactive bowel sounds. No palpable organomegaly. MUSCULOSKELETAL: No joint swelling or deformity. EXTREMITIES: Does have chronic bilateral lower extremity severe lymphedema. Right lower extremity redness around the ankle extending up to the mid calf region. No purulent drainage noted. Minimal tenderness to palpation and warmth. NEUROLOGICAL: Gross neurological examination did not reveal any focal deficits. SKIN: No rashes. - Labs CBC & Chem 7: 03/23/20 03:09 03/23/20 03:09 Labs: Abnormal Lab Results - Last 24 Hours (Table) 03/22/20 03/22/20 03/22/20 Range/Units 04:05 17:11 20:30 BUN/Creatinine Ratio (12.00-20.00) Ratio POC Glucose (mg/dL) 180 H 144 H (75-99) mg/dL Hemoglobin A1c 9.5 H (4.0-6.0) % 03/23/20 03/23/20 03/23/20 Range/Units 03:09 06:53 11:27 BUN/Creatinine Ratio 23.33 H (12.00-20.00) Ratio POC Glucose (mg/dL) 113 H 184 H (75-99) mg/dL Hemoglobin A1c (4.0-6.0) % Microbiology - Last 24 Hours (Table) 03/21/20 13:16 Blood Culture - Preliminary Blood No Growth after 48 hours Assessment and Plan Assessment: 1. Cellulitis bilateral lower extremities; left worse than right; patient started on IV Unasyn--> Cephazolin; blood cultures are done 2. Lymphedema bilateral lower extremities; symptomatic treatment 3. Diabetes mellitus type 1; continue Levemir 60 units subcu daily at bedtime; patient takes 20 units subcu before meals each meal; we will continue to monitor blood sugars and cover with sliding scale 4. Hypertension; lisinopril 2.5 mg by mouth daily at bedtime along with metoprolol 100 mg daily 5. Hyperlipidemia; Pravachol 40 mg by mouth daily at bedtime 6. DVT; by history; continue anticoagulation with Xarelto Time with Patient: Greater than 30
[2020-03-24 11:52] LABS: Glucose,Whole Blood 191 mg/dL (75-99)
[2020-03-24 12:03] VITALS: BP 147/72; PULSE 68; RESP 18; TEMP 97.7
--- NOTE | 2020-03-24 13:55 | PN ---
PROGRESS NOTE DATE OF SERVICE: 03/24/2020 REASON FOR FOLLOWUP: Left leg cellulitis and cutaneous candidiasis. INTERVAL HISTORY: The patient is currently afebrile. The patient is feeling better. Breathing comfortably. Did mention the left posterior leg swelling and redness has improved with no pain. No chest pain, no cough. No abdominal pain, no diarrhea. PHYSICAL EXAMINATION: Blood pressure 147/72 with a pulse of 68, temperature 97.7. She is 96% on room air. General description is a middle-aged female, lying in bed in no distress. RESPIRATORY SYSTEM: Unlabored breathing, clear to auscultation anteriorly. HEART: S1, S2. Regular rate and rhythm. ABDOMEN: Soft, no tenderness. Left leg swelling and redness decreased, no drainage. LABS: No new labs have been obtained today. Blood culture has been negative. DIAGNOSTIC IMPRESSION AND PLAN: Patient with left posterior leg cellulitis with evidence of cutaneous candidiasis of the popliteal fossa. Finish therapy with oral Keflex 500 mg p.o. q.6 hours for 10 days along with nystatin powder in the left popliteal fossa twice a day and a close outpatient followup. Questions and concerns were answered. MMODL / IJN: [id number] /
[2020-03-24] MEDS ORDERED: CEPHALEXIN 500 MG CAP PO STA (16:37)
[2020-03-24 17:07] LABS: Glucose,Whole Blood 267 mg/dL (75-99)
--- NOTE | 2020-03-26 07:47 | CDI ---
Documentation Clarification Form Date: 03/26/2020 06:37:00 AM From: Leatha Alfred Phone: If you have a question about this query, please contact Kandis Sahu Manual Qa Tester at [phone] between 8am and 5pm. Admit Date: 03/21/2020 01:17:00 PM Patient Name: Rachel Koehler Visit Number: [id number] Discharge Date: 03/24/2020 06:35:00 PM ATTENTION: The Clinical Documentation Specialists (CDI) and [facility] Coding Staff appreciate your assistance in clarifying documentation. Please respond to the clarification below the line at the bottom and electronically sign. The CDI & [facility] Coding staff will review the response and follow-up if needed. Please note: Queries are made part of the Legal Health Record. If you have any questions, please contact the author of this message via ITS. Dr. Alfred Seymour Conflicting documentation has been found in the medical record: Per H and P and PN 03/23 Type I DM is documented. Per PN 03/23 Dr. Hermosillo documents Type II DM uncontrolled. Please clarify. Does patient have type I DM or type II DM. History/Risk Factors: Clinical Indicators: diabetic neuropathy, glucose 222 on admit Treatment: Monitor BS Levemir 60 units SubQ In your opinion, what is the most clinically appropriate diagnosis for this patient? Type I DM Type I DM uncontrolled Type II DM Type II DM uncontrolled Other explanation of clinical findings Unable to determine (no explanation for clinical findings) Type I DM uncontrolled MTDD
--- NOTE | 2020-04-08 10:47 | P.DS ---
Providers Date of admission: 03/21/20 13:17 Expected date of discharge: 03/24/20 Attending physician: Ron Ramires Consults: 03/21/20 13:18 Consult Physician Routine Consulting Provider: Alem Segovia Consult Reason/Comments: cellulitis Do you want consulting provider notified?: Yes 03/22/20 15:19 Consult Physician Routine Consulting Provider: Jac Blnaco Consult Reason/Comments: Chronic lymphedema both lower extremities /elephantiasis Do you want consulting provider notified?: Yes Primary care physician: Celia Ramos MD Hospital Course: Discharge diagnosis 1. Cellulitis bilateral lower extremities; left worse than right; patient started on IV Unasyn--> Cephazolin; blood cultures negative. 2. Lymphedema bilateral lower extremities; symptomatic treatment 3. Diabetes mellitus type 1; continue Levemir 60 units subcu daily at bedtime; patient takes 20 units subcu before meals each meal; we will continue to monitor blood sugars and cover with sliding scale 4. Hypertension; lisinopril 2.5 mg by mouth daily at bedtime along with metoprolol 100 mg daily 5. Hyperlipidemia; Pravachol 40 mg by mouth daily at bedtime 6. DVT; by history; continue anticoagulation with Xarelto Hospital course 60-year-old female presenting to the emergency department with concerns for cellulitis. Patient was at the clinic with Dr. Del Angel who did evaluate her and recommend she come to the emergency department. Patient has been on oral antibiotics without improvement of symptoms. Patient does have history of similar symptoms previously requiring hospitalization and infectious disease consult with a cocktail of antibiotics. Patient does have some discomfort in the area. Area involved is left greater than right posterior leg. Patient did also have a fall out of the ambulance upon arrival to the hospital. Patient states she just bruised her left elbow and scratch her right elbow. 03/22/2020 Patient is seen and evaluated in room at bedside; reports stiffness and swelling of right foot; claims redness and burning pain is improved and right lower extremity Patient remains afebrile with stable vital signs; white blood count remains stable; patient is currently on IV antibiotics a grade to be continue; ID to see patient and make further recommendations; we will consult vascular surgery for elephantiasis 03/23/2020 Patient is currently lying in the bed comfortably. Still complains of right lower extremity heaviness and swelling and also burning sensation. Patient is being continued on cefazolin for right lower extremity cellulitis. Patient does have chronic bilateral lower extremity lymphedema. ID is following. Cultures have been negative so far. Patient has been afebrile. No complaints of chest pain or shortness of breath. Laboratory data reviewed 12/24/2019 Patient is currently lying in the bed comfortably. Leg redness is much improved. Patient has been afebrile overnight. No leukocytosis. Patient will be continued on antibiotic course by mouth. Otherwise patient is cleared from ID standpoint and also general surgery has seen the patient. Recommends to continue with vitamin A and D. No other acute overnight issues. Patient is being discharged home today. Transportation will be arranged. PHYSICAL EXAMINATION: GENERAL: The patient is alert and oriented x3, not in any acute distress. Well developed, well nourished. HEENT: Pupils are round and equally reacting to light. EOMI. No scleral icterus. No conjunctival pallor. Normocephalic, atraumatic. No pharyngeal erythema. No thyromegaly. CARDIOVASCULAR: S1 and S2 present. No murmurs, rubs, or gallops. PULMONARY: Chest is clear to auscultation, no wheezing or crackles. ABDOMEN: Soft, nontender, nondistended, normoactive bowel sounds. No palpable organomegaly. MUSCULOSKELETAL: No joint swelling or deformity. EXTREMITIES: Does have chronic bilateral lower extremity severe lymphedema. Right lower extremity redness around the ankle extending up to the mid calf region. No purulent drainage noted. Minimal tenderness to palpation and warmth. NEUROLOGICAL: Gross neurological examination did not reveal any focal deficits. SKIN: No rashes. Discharge vitals reviewed. Patient Condition at Discharge: Fair Plan - Discharge Summary Discharge Rx Participant: No New Discharge Prescriptions: New Cephalexin [Keflex] 500 mg PO Q6HR 10 Days #40 cap Nystatin 100,000 Unit/gm Powd [Mycostatin Powder] 1 applic TOPICAL BID 15 Days #1 each Calcium Carbonate [Tums] 1,000 mg PO DAILY #30 chew Vitamin A Acetate [Vitamin A] 10,000 unit SL DAILY #30 tab.subl Continue allopurinoL [Zyloprim] 300 mg PO DAILY Aspirin EC [Ecotrin Low Dose] 81 mg PO DAILY busPIRone HCL 15 mg PO DAILY Cetirizine HCl [Zyrtec] 10 mg PO HS Cholecalciferol [Vitamin D3 (25 Mcg = 1000 Iu)] 1,000 unit PO DAILY EPINEPHrine (Auto Inject) [Epipen] 0.3 mg IM ONCE PRN PRN Reason: Anaphylaxis Fluticasone Nasal [place]ton [Flonase Nasal Colton] 1 spr EA NOSTRIL BID Furosemide [Lasix] 40 mg PO DAILY Isosorbide Mononitrate [Isosorbide Mononitrate ER] 30 mg PO QAM lisinopriL [Zestril] 2.5 mg PO HS Metoprolol Succinate (ER) [Toprol XL] 100 mg PO QAM Multivitamin,Therapeutic [Thera] 1 each PO DAILY Potassium Chloride [Klor-Con 20] 20 meq PO DAILY Pravastatin Sodium [Pravachol] 40 mg PO HS Rivaroxaban [Xarelto] 20 mg PO DAILY Melatonin 10 mg PO HS Insulin Lispro [Admelog] 20 unit SQ TID PRN PRN Reason: blood sugar over 150 Omeprazole 40 mg PO DAILY #30 capsule. Insulin Glarjay jay,Hum.rec.anlog [Basaglar Kwikpen U-100] 60 unit SQ HS busPIRone HCL 30 mg PO HS Discontinued Doxycycline Hyclate 100 mg PO BID Discharge Medication List Aspirin EC [Ecotrin Low Dose] 81 mg PO DAILY 01/10/18 [History] Cetirizine HCl [Zyrtec] 10 mg PO HS 01/10/18 [History] Cholecalciferol [Vitamin D3 (25 Mcg = 1000 Iu)] 1,000 unit PO DAILY 01/10/18 [History] EPINEPHrine (Auto Inject) [Epipen] 0.3 mg IM ONCE PRN 01/10/18 [History] Fluticasone Nasal [place] [Flonase Nasal [place]] 1 spr EA NOSTRIL BID 01/10/18 [History] Furosemide [Lasix] 40 mg PO DAILY 01/10/18 [History] Isosorbide Mononitrate [Isosorbide Mononitrate ER] 30 mg PO QAM 01/10/18 [History] Metoprolol Succinate (ER) [Toprol XL] 100 mg PO QAM 01/10/18 [History] Multivitamin,Therapeutic [Thera] 1 each PO DAILY 01/10/18 [History] Potassium Chloride [Klor-Con 20] 20 meq PO DAILY 01/10/18 [History] Pravastatin Sodium [Pravachol] 40 mg PO HS 01/10/18 [History] Rivaroxaban [Xarelto] 20 mg PO DAILY 01/10/18 [History] allopurinoL [Zyloprim] 300 mg PO DAILY 01/10/18 [History] busPIRone HCL 15 mg PO DAILY 01/10/18 [History] lisinopriL [Zestril] 2.5 mg PO HS 01/10/18 [History] Insulin Lispro [Admelog] 20 unit SQ TID PRN 08/20/18 [History] Melatonin 10 mg PO HS 08/20/18 [History] Omeprazole 40 mg PO DAILY #30 capsule. 08/22/18 [Rx] Insulin Glargine,Hum.rec.anlog [Basaglar Kwikpen U-100] 60 unit SQ HS 03/03/20 [History] busPIRone HCL 30 mg PO HS 03/22/20 [History] Calcium Carbonate [Tums] 1,000 mg PO DAILY #30 chew 03/24/20 [Rx] Cephalexin [Keflex] 500 mg PO Q6HR 10 Days #40 cap 03/24/20 [Rx] Nystatin 100,000 Unit/gm Powd [Mycostatin Powder] 1 applic TOPICAL BID 15 Days #1 each 03/24/20 [Rx] Vitamin A Acetate [Vitamin A] 10,000 unit SL DAILY #30 tab.subl 03/24/20 [Rx] Follow up Appointment(s)/Referral(s): Celia Ramos MD [Primary Care Provider] - 1-2 days (please call to make your own appointment, office is currently not answering phone.) [facility] [place] [[facility]FF] - 04/01/20 1:00 pm Patient Instructions/Handouts: Cellulitis (DC), Type 2 Diabetes in Adults: New Diagnosis (DC), Fall Prevention (DC) Discharge Disposition: HOME WITH HOME HEALTH SERVICES
== END 2020-03-24 18:35 | disposition home health service (06) | DRG 603 ==
LOC: EC 12:10 → SUPCPDRO 12:10 → 6NMEDSUR 13:17
PROVIDERS: ADMIT Internal Medicine; ATTEND Internal Medicine
DX: L03.116 Cellulitis of left lower limb (principal); Z68.45 Body mass index [BMI] 70 or greater, adult; D68.9 Coagulation defect, unspecified; L03.115 Cellulitis of right lower limb; J45.909 Unspecified asthma, uncomplicated; I89.0 Lymphedema, not elsewhere classified; G47.33 Obstructive sleep apnea (adult) (pediatric); Z99.89 Dependence on other enabling machines and devices; I10 Essential (primary) hypertension; E21.1 Secondary hyperparathyroidism, not elsewhere classified; B37.2 Candidiasis of skin and nail; E10.40 Type 1 diabetes mellitus with diabetic neuropathy, unspecified; E10.65 Type 1 diabetes mellitus with hyperglycemia; E50.9 Vitamin A deficiency, unspecified; E66.01 Morbid (severe) obesity due to excess calories; E78.5 Hyperlipidemia, unspecified; F41.9 Anxiety disorder, unspecified; S50.02XA Contusion of left elbow, initial encounter; W06.XXXA Fall from bed, initial encounter; Y92.538 Other ambulatory health services establishments as the place of occurrence of the external cause; Z79.01 Long term (current) use of anticoagulants; Z79.4 Long term (current) use of insulin; Z79.82 Long term (current) use of aspirin; Z79.899 Other long term (current) drug therapy; Z83.2 Family history of diseases of the blood and blood-forming organs and certain disorders involving the immune mechanism; Z86.711 Personal history of pulmonary embolism; Z86.718 Personal history of other venous thrombosis and embolism; Z90.710 Acquired absence of both cervix and uterus; Z90.89 Acquired absence of other organs; Z90.49 Acquired absence of other specified parts of digestive tract; M10.9 Gout, unspecified; Z88.5 Allergy status to narcotic agent; Z88.8 Allergy status to other drugs, medicaments and biological substances; Z91.030 Bee allergy status; Z80.9 Family history of malignant neoplasm, unspecified; M79.3 Panniculitis, unspecified
CPT/HCPCS: 80048; 80053; 83036; 83605; 85025; 87040; 94660; 99284